=== PATIENT | male | born 1945 | race Caucasian/White ===

== ENCOUNTER 2016-08-19 15:15 | Emergency (ER) | payer MEDICARE, MEDICAID ==
[2016-08-19] MEDS ORDERED: BENZONATATE 100 MG CAPSULE PO STA (16:25)
[2016-08-19] MEDS ORDERED: BENZONATATE 100 MG CAPSULE PO ONE (16:29)
== END 2016-08-19 17:05 | disposition home or self-care (01) ==
DX: J40 Bronchitis, not specified as acute or chronic (principal); R03.0 Elevated blood-pressure reading, without diagnosis of hypertension
CPT/HCPCS: 71020; 87275; 87276; 99283; 99284; A9270

== ENCOUNTER 2016-09-16 | Outpatient (CLI) | payer MEDICARE, MEDICAID | END 2016-09-16 00:01 | disposition home or self-care (01) | DX: R19.7 Diarrhea, unspecified (principal) ==

== ENCOUNTER 2017-02-26 12:53 | Outpatient (CLI) | payer MEDICARE, MEDICAID | END 2017-02-26 12:54 | disposition critical access hospital (66) | LOC: EMS 12:53 | PROVIDERS: ATTEND Surgery | DX: M54.2 Cervicalgia (principal); S60.511A Abrasion of right hand, initial encounter; W01.0XXA Fall on same level from slipping, tripping and stumbling without subsequent striking against object, initial encounter | CPT/HCPCS: A0425; A0429 ==

== ENCOUNTER 2017-02-26 13:13 | Emergency (ER) | payer MEDICARE, MEDICAID ==
[2017-02-26] MEDS ORDERED: HYDROmorphone 1 MG/ML SYRINGE IM STA (13:23)
--- NOTE | 2017-02-26 13:26 | ED Physician Documentation ---
PD HPI MAJOR TRAUMA - Stated complaint Stated Complaint: GLF - Chief complaint Chief Complaint: Trauma Hd/Nk - History obtained from History obtained from: Patient, Family, EMS - History of Present Illness Mechanism of injury: Fell (He was racing his 4-year-old grandson, took a trip and fell forward and had brief loss of consciousness he said, he did hit his forehead and both hands and complains of upper neck pain. He is brought in by ambulance with full C-spine precautions. Tetanus is up-to-date. He is not anticoagulated. He does have a history of prostate cancer which he says is not metastatic.) Review of Systems Ears: denies: Loss of hearing, Ear pain Nose: denies: Rhinorrhea / runny nose, Congestion, Epistaxis Cardiac: denies: Chest pain / pressure, Palpitations Respiratory: denies: Dyspnea, Cough GI: denies: Abdominal Pain PD PAST MEDICAL HISTORY - Past Surgical History Past Surgical History: No - Present Medications Home Medications: Ambulatory Orders Medication Instructions Recorded Confirmed Albuterol Sulfate [Proventil Hfa 1 - 2 puffs IH Q4H PRN #1 08/19/16 Inhaler] hfa.aer.ad Benzonatate [Tessalon] 200 mg PO TID PRN #20 capsule 08/19/16 predniSONE [Deltasone] 60 mg PO DAILY 5 Days 08/19/16 HYDROcod/ACETAM 5/325 [Forest 5/325] 1 - 2 ea PO Q6H PRN #15 tablet 02/26/17 - Allergies Allergies/Adverse Reactions: Allergies Allergy/AdvReac Type Severity Reaction Status Date / Time codeine Allergy Rash Verified 08/19/16 15:26 - Social History Does the pt smoke?: No Smoking Status: Never smoker PD ED PE NORMAL - Vitals Vital signs reviewed: Yes - General General: Alert and oriented X 3, No acute distress, Other (He is in a c-collar and on a backboard. He is rolled off the backboard using logroll precautions during examination, but the c-collar is maintained pending imaging.) - HEENT HEENT: PERRL, EOMI, Other (He has a deep abrasion on the left side of the forehead just above the eyebrow without underlying bony tenderness, nothing that needs stitching. He has no facial bony tenderness. 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, No motor deficit, No sensory deficit, Normal speech - Psych Psych: Normal mood, Normal affect Results - Vitals Vitals: Vital Signs - 24 hr 02/26/17 02/26/17 13:14 14:51 Temperature 36.6 C Heart Rate 104 H 91 Respiratory 20 18 Rate Blood Pressure 154/92 H 113/58 L O2 Saturation 95 99 Oxygen O2 Source Room air - Rads (name of study) Ct Head an cspine Radiology: EMP read contemporaneously (NAD, DJD,DDD) B hands Radiology: EMP read contemporaneously (no frx, DJD) Procedures - Laceration (location) L forehead Length in cm: 3 Wound type: Superficial (more deep abrasion than lac, but persistent bleeding required closure.) Wound Preparation: Irrigated copiously NS Skin layer closure: Dermabond Other: Patient tolerated well, Tetanus UTD Complexity: Simple PD MEDICAL DECISION MAKING - ED course ED course: The patient and family were counseled as to the diagnosis and need for follow- up. I counseled the patient with regard to signs and symptoms that would necessitate an urgent reevaluation in the emergency department. They understand they are welcome to return at any time if worse or if not improving as expected. This document was made in part using voice recognition software. While efforts are made to proofread this documents, sound alike and grammatical errors may occur. Departure - Departure Disposition: 01 Home, Self Care Clinical Impression: Concussion Qualifiers: Encounter type: initial encounter Loss of consciousness presence/duration: with LOC of 30 min or less Qualified Code(s): S06.0X1A - Concussion with loss of consciousness of 30 minutes or less, initial encounter Facial laceration Qualifiers: Encounter type: initial encounter Qualified Code(s): S01.81XA - Laceration without foreign body of other part of head, initial encounter Neck strain Qualifiers: Encounter type: initial encounter Qualified Code(s): S16.1XXA - Strain of muscle, fascia and tendon at neck level, initial encounter Contusion of right hand Qualifiers: Encounter type: initial encounter Qualified Code(s): S60.221A - Contusion of right hand, initial encounter Contusion of left hand Qualifiers: Encounter type: initial encounter Qualified Code(s): S60.222A - Contusion of left hand, initial encounter Condition: Good Record reviewed to determine appropriate education?: Yes Instructions: ED Head Injury Closed, ED Laceration Facial Skin Glue Prescriptions: HYDROcod/ACETAM 5/325 [Forest 5/325] 1 - 2 ea PO Q6H PRN #15 tablet PRN Reason: Pain Comments: Call your doctor to arrange a follow-up appointment, make the next available appointment. In the interim, return anytime if worse or if new symptoms develop. Do not drink or drive while taking narcotic pain medication. Note that many narcotic pain relievers also contain Tylenol/acetaminophen. Please ensure that your total dose of acetaminophen from all sources does not exceed 3 g (3000 mg) per day. You may get constipated while on this medication. Take a stool softener such as Colace twice a day while you are on it. Also add an [id number] laxative such as senna or MiraLAX on any day that you do not have a bowel movement. If you received a narcotic pain medication or sedative while in the emergency department, do not drive for the next 24 hours.
[2017-02-26] MEDS ORDERED: HYDROmorphone 1 MG/ML SYRINGE ONE (13:33)
[2017-02-26] MEDS ORDERED: ONDANSETRON ODT 4 MG TABLET TL STA (13:39)
--- NOTE | 2017-02-26 14:27 | XRAY Preliminary Report ---
Exam: XR Hand 3 View BILAT IMPRESSION: 1. 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 No acute fracture or dislocation . [facility] SITE ID: [id number]
--- NOTE | 2017-02-26 14:30 | XRAY Report ---
EXAMS: 1. Right Hand Radiography 2. Left Hand Radiography EXAM DATE: 02/26/2017 02:14 PM. CLINICAL HISTORY: Fall with bilateral hand injury. COMPARISON: None. TECHNIQUE: 3 views each hand. FINDINGS: Right: Bones: There is moderate osteoarthritis of the right hand. There are small marginal cysts at the seco nd through fourth distal interphalangeal joints. There is moderate spurring of the first interphalang eal joint and fifth PIP joint. No acute fracture. Joints: No dislocation. Soft Tissues: Normal. No soft tissue swelling. Left: Bones: There is moderate osteoarthritis of the left hand. There is spurring which involves the left s econd and fifth distal interphalangeal joints greatest. No acute fracture. Joints: Normal. No subluxations. Soft Tissues: Normal. No soft tissue swelling. IMPRESSION: 1. 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 No acute fracture or dislocation . [facility] Referring Provider Line: [phone] SITE ID: [id number]
--- NOTE | 2017-02-26 14:45 | CT Preliminary Report ---
Exam: CT Head W/O IMPRESSION: Generalized age-related changes without evidence of acute intracranial abnormality when compared to the brain MRI of 12/29/2015. [facility] SITE ID: [id number]
--- NOTE | 2017-02-26 14:48 | CT Report ---
EXAM: CT HEAD EXAM DATE: 02/26/2017 02:31 PM. CLINICAL HISTORY: Fall, head and neck pain. COMPARISON: 12/29/2015 MRI brain TECHNIQUE: Multiaxial CT images were obtained from the foramen magnum to the vertex. IV contrast: Non e. Reformats: Coronal. In accordance with CT protocol optimization, one or more of the following dose reduction techniques w ere utilized for this exam: automated exposure control, adjustment of mA and/or KV based on patient s ize, or use of iterative reconstructive technique. FINDINGS: Parenchyma: No intraparenchymal hemorrhage. No evidence of mass, midline shift, or CT findings of acu te infarction. Mcnulty-white differentiation is distinct. Extraaxial Spaces: Normal for age. No subdural or epidural collections identified. Ventricles: The ventricles and cortical sulci are enlarged, consistent with age-related tissue loss. Sinuses: Imaged paranasal sinuses, orbits, and mastoids show no significant abnormality. Bones: No evidence of fracture or calvarial defect. Other: Diffuse chronic microangiopathic white matter changes are evident. IMPRESSION: Generalized age-related changes without evidence of acute intracranial abnormality when compared to the brain MRI of 12/29/2015. [facility] Referring Provider Line: [phone] SITE ID: [id number]
--- NOTE | 2017-02-26 14:50 | CT Preliminary Report ---
Exam: CT Cervical Spine W/O IMPRESSION: Degenerative changes. No acute disease. [facility] SITE ID: [id number]
[2017-02-26 14:52] VITALS: BP 113/58
--- NOTE | 2017-02-26 14:53 | CT Report ---
EXAM: CT CERVICAL SPINE WITHOUT CONTRAST DATE: 02/26/2017 02:30 PM HISTORY: Fall, head and neck pain. COMPARISONS: 01/10/2016. TECHNIQUE: Thin-section axial images were acquired of the cervical spine without contrast. Post-proce ssing: Coronal and sagittal reformats. Other: None. In accordance with CT protocol optimization, one or more of the following dose reduction techniques w ere utilized for this exam: automated exposure control, adjustment of mA and/or KV based on patient s ize, or use of iterative reconstructive technique. FINDINGS: Alignment: Normal. No scoliosis or spondylolisthesis. Bones: No fracture or bone lesion. Interspace Levels/Facets: C1-C2: Marked degenerative changes including fragmentation of the odontoid tip, present on previous s tudy as well. C2-C3: Moderate disk space narrowing with marginal lipping. C3-C4: Moderate disk space narrowing. Mild degenerative facet disease. C4-C5: Marked disk space narrowing with marginal lipping. Mild degenerative facet disease. C5-C6: Marked disk space narrowing. Moderate degenerative facet disease. C6-C7: Marked disk space narrowing with marginal lipping. C7-T1: Moderate disk space narrowing. Musculature: Grossly unremarkable. Other: The paravertebral and prevertebral soft tissues are normal. The lung apices are clear. IMPRESSION: Degenerative changes. No acute disease. [facility] Referring Provider Line: [phone] SITE ID: [id number]
== END 2017-02-26 15:23 | disposition home or self-care (01) ==
LOC: EDUNIT# → ED 13:13
DX: S06.0X1A Concussion with loss of consciousness of 30 minutes or less, initial encounter (principal); S01.81XA Laceration without foreign body of other part of head, initial encounter; S16.1XXA Strain of muscle, fascia and tendon at neck level, initial encounter; S60.222A Contusion of left hand, initial encounter; S60.221A Contusion of right hand, initial encounter; W01.0XXA Fall on same level from slipping, tripping and stumbling without subsequent striking against object, initial encounter; Y93.02 Activity, running; Y92.019 Unspecified place in single-family (private) house as the place of occurrence of the external cause; M19.042 Primary osteoarthritis, left hand; M19.041 Primary osteoarthritis, right hand; Z85.46 Personal history of malignant neoplasm of prostate
CPT/HCPCS: 12013; 70450; 72125; 73130; 96372; 99284; J1170

== ENCOUNTER 2017-08-11 10:15 | Outpatient (CLI) | payer MEDICARE, MEDICAID ==
[2017-08-11 12:38] LABS: BASOPHILS # (AUTO) 0.1 10^3/uL (0.0-0.1); EOSINOPHILS # (AUTO) 0.3 10^3/uL (0.0-0.7); EOSINOPHILS % (AUTO) 2.6 %; HGB - HEMOGLOBIN 13.7 g/dL (14.0-18.0); LYMPHOCYTES # (AUTO) 2.7 10^3/uL (1.5-3.5); LYMPHOCYTES % (AUTO) 27.5 %; MEAN CORPUSCULAR HEMOGLOBIN 29.3 pg (27.0-31.0); MEAN CORPUSCULAR HGB CONC 35.6 g/dL (32.0-36.0); MEAN CORPUSCULAR VOLUME 82.2 fL (80.0-94.0); MEAN PLATELET VOLUME 7.5 fL (7.4-11.4); MONOCYTES # (AUTO) 0.6 10^3/uL (0.0-1.0); MONOCYTES % (AUTO) 6.1 %; NEUTROPHILS # (AUTO) 6.3 10^3/uL (1.5-6.6); NEUTROPHILS % (AUTO) 62.8 %; PLT - PLATELET COUNT 303 10^3/uL (130-450); RED BLOOD COUNT 4.69 10^6/uL (4.70-6.10); RED CELL DISTRIBUTION WIDTH 14.8 % (12.0-15.0)
[2017-08-11 13:00] LABS: ALBUMIN 4.4 g/dL (3.2-5.5); ALBUMIN/GLOBULIN RATIO 1.2 (1.0-2.2); ALKALINE PHOSPHATASE 54 IU/L (42-121); ALT ALANINE AMINOTRANSFERASE 19 IU/L (10-60); AST ASPARTATE AMINOTRANSFERASE 24 IU/L (10-42); BILIRUBIN,TOTAL 0.4 mg/dL (0.2-1.0); BUN - BLOOD UREA NITROGEN 12 mg/dL (6-20); CALCIUM 8.9 mg/dL (8.5-10.3); CARBON DIOXIDE - CO2 25 mmol/L (21-32); CHLORIDE 105 mmol/L (101-111); CHOL/HDL RATIO 7.4 (<5.0); CHOLESTEROL 156 mg/dL; GFR - MDRD 74 (>89); GLUCOSE 107 mg/dL (70-100); HDL CHOLESTEROL 21 mg/dL; LDL CHOLESTEROL,CALCULATED 103 mg/dL; LDL/HDL RATIO 4.9 (<3.6); SODIUM 138 mmol/L (135-145); VLDL CHOLESTEROL 32 mg/dL
== END 2017-08-11 10:16 | disposition home or self-care (01) ==
LOC: LAB.WCP 10:15
PROVIDERS: ATTEND Family Medicine
DX: Z00.00 Encounter for general adult medical examination without abnormal findings (principal); R51 Headache; F32.9 Major depressive disorder, single episode, unspecified; F41.8 Other specified anxiety disorders
CPT/HCPCS: 36415; 80053; 80061; 83721; 85025

== ENCOUNTER 2019-03-04 08:00 | Outpatient (CLI) | payer MEDICARE, MEDICAID | END 2019-03-04 23:59 | disposition home or self-care (01) | LOC: LAB.WCP 08:00 | PROVIDERS: ATTEND Urology | DX: Z53.9 Procedure and treatment not carried out, unspecified reason (principal) | CPT/HCPCS: 36415; 84153 ==

== ENCOUNTER 2019-03-05 09:15 | Outpatient (CLI) | payer MEDICARE, MEDICAID | END 2019-03-05 23:59 | disposition home or self-care (01) | LOC: LAB.WCP 09:15 | PROVIDERS: ATTEND Urology | DX: C61 Malignant neoplasm of prostate (principal) | CPT/HCPCS: 36415; 84153 ==

== ENCOUNTER 2019-04-08 08:00 | Outpatient (CLI) | payer MEDICARE, MEDICAID | END 2019-04-08 23:59 | disposition home or self-care (01) | LOC: LAB.WCP 08:00 | PROVIDERS: ATTEND Urology | DX: C61 Malignant neoplasm of prostate (principal) | CPT/HCPCS: 36415; 84153 ==

== ENCOUNTER 2019-04-13 10:30 | Outpatient (CLI) | payer MEDICARE, MEDICAID ==
--- NOTE | 2019-04-13 21:16 | CONSULTATION NOTE ---
Palliative Care Consultation - Referral Referring Provider: Dr. Sidney Correa Time of Visit: [id number] Referral setting: Home Referral Reason: Metastatic Prostate Cancer/Goals of Care - Information Sources Records reviewed: Previous records reviewed History/Review of Systems obtained from: Patient, Family (daughter Radha present; Marie Green) Exam limitations: No limitations - History of Present Illness Brief History of Present Illness: This is a 73-year-old gentleman who was referred in follow-up regarding his metastatic prostate cancer. He was originally diagnosed with a [id number] (Stage IVB) [place] 9 prostate cancer, at age 69 related to a baseline screening PSA of 269. Biopsies confirmed his [place] 9 prostate adenocarcinoma, and showed local prostatic extension, retroperitoneal lymphadenopathy, and right pelvic osteo metastasis. He was treated with Lupron and Casodex, but now has had a nuclear bone scan on 03/02/2009 that showed increased uptake in his right iliac bone compared to 09/02/2018, though does not have localized pain in this area. He was originally seen by Dr. Benoit, and most recently seen by Dr. Jennings urologist, and followed by Dr. Sidney Correa in oncology. Patient's most recent PSA 02/2019 was 21.98; with his follow-up 04/08/2000 1920.128. He was changed to Xtandi, and has been taking for a few weeks, is continuing on Lupron. In review other medications, he has been taking them 4 times a day, instructed can take all 4 tabs =120 mg; in am. This will help with compliance as well. Patient has at baseline back pain, with herniated discs, arthritis of his cervical spine, and has long turn been on hydrocodoneacetaminophen 5/325 mg in the a.m., and in the p.m. as needed. He has a pain contract with Dr. Riley, will leave in place for now, as he is not experiencing any increase in his pain related to his cancer. He has recently had his sertraline increased to 100 mg for persistent depression, and has underlying anxiety disorder. He lives with his of 28 years Marie, daughter Radha has been helping oversee their care, she lives in [place]. She is getting ready to move to [place], and is hoping to connect patient with palliative care for further support and oversight in his oncology diagnosis and care. Medical/Surgical History - Past Medical History Respiratory: reports: Asthma Neuro: Headaches GI: reports: Hiatal hernia, Chronic constipation : reports: Benign prostate hypertrophy, Other (Prostate Cancer) HEENT: reports: Chronic vision loss Psych: reports: Depression, Anxiety Musculoskeletal: reports: Osteoarthritis, Fatigue, Chronic back pain MRSA Hx?: No - Substance History Use: Uses substance without health or social issues: Other (history of meth use; tobacco; now vaps/smokes marijuana for sleep/anxiety at night) Social History - Living Situation Living arrangement: At home Living Situation: With spouse/s.o. Support System: Patient lives with his Anuj Green, they have been 28-1/2 years. He came up from [place] in 2014, to be with his daughter. Reports he lived off the grid for several years, and had not received any healthcare until Radha his daughter got him signed up. He is very much enjoyed being involved in their family, will be difficult for them as she moves back to [place]. He does have 8 children total, Radha, 4 in [place], went [place], one in [place], and one . They live in the subsidized apartments in [place], they do not drive, but can walk to most appointments/stores and have paratransit set up. Family History - Family History Family History: Mother: Alive and Well (age 92), Father: (two brothers of liver cancer 67 & 53), Cancer ( of brain cancer at 38), Brother: , Cancer Medications/Allergies - Medications Home Medications: Ambulatory Orders Medication Instructions Recorded Confirmed Albuterol Sulfate [Proventil Hfa 1 - 2 puffs IH Q4H PRN #1 08/19/16 Inhaler] hfa.aer.ad Alprazolam [Xanax] 0.5 mg PO ACHS PRN 04/15/19 04/15/19 Cholecalciferol (Vitamin D3) 2,000 unit PO DAILY 04/15/19 04/15/19 [Vitamin D3] Enzalutamide [Xtandi] 160 mg PO DAILY 04/15/19 04/15/19 HYDROcod/ACETAM 5/325 [[place] 5/325] 1 ea PO BID 04/15/19 04/15/19 Pramipexole Di-HCl [Mirapex] 0.125 mg PO ACHS 04/15/19 04/15/19 Senna [Senokot] 8.6 mg PO BID PRN 04/15/19 04/15/19 Sertraline HCl 100 mg PO DAILY 04/15/19 04/15/19 - Allergies Allergies/Adverse Reactions: Allergies Allergy/AdvReac Type Severity Reaction Status Date / Time codeine Allergy Rash Verified 08/19/16 15:26 Review of Systems - Constitutional Constitutional: reports: Fatigue, Weight stable (212). denies: Fever, Chills - Eyes Eyes: reports: Vision loss, Corrective lenses - Ears, Nose & Throat Ears, Nose & Throat: reports: Hearing loss (mild; complain of a ongoing noise in ears "release of air" not ringing or tinnitus), Other (dental implants) - Cardiovascular Cardiovascular: reports: Lightheadedness, Exertional dyspnea, Decr. exercise tolerance. denies: Chest pain - Respiratory Respiratory: reports: Cough (occ), Wheezing (intermittently), Snoring, SOB with exertion, Other (snoring;). denies: SOB at rest - Gastrointestinal Gastrointestinal: reports: Constipation, Good appetite. denies: Nausea - Genitourinary Genitourinary: denies: Incontinence - Musculoskeletal Musculoskeletal: reports: Back pain (group home chronic; has opioid contract with Dr. Riley), Muscle aches, Stiffness, Muscle weakness, Assistive devices (has walker for longer distances) - Integumentary Integumentary: reports: Dryness, Hair changes (lost body hair) - Neurological Neurological: reports: General weakness, Dizziness, Memory problems (mild), Abnormal gait, Other (reports RLS at night) - Psychiatric Psychiatric: reports: Depression (recent increase of Sertraline), Anxiety - Endocrine Endocrine: reports: Intolerance to cold - Hematologic/Lymphatic Hematologic/Lymphatic: denies: Recurrent infections - All Other Systems All Other Systems: reports: Reviewed and negative Physical Exam - Vital Signs Temperature: 97.1 C Pulse Rate: 53 Respiratory Rate: 18 O2 Saturation: 96 (ra @ rest) Blood Pressure: 128/72 (sitting; 118/72 standing) - Physical Exam General Appearance: positive: No acute distress, Alert Eyes Bilateral: positive: Normal inspection ENT: positive: No signs of dehydration Neck: positive: No JVD, Trachea midline Cardiovascular: positive: Regular rate & rhythm Respiratory: positive: No respiratory distress, Breath sounds nml Abdomen: positive: Non-tender, Soft, Nml bowel sounds, Obese. negative: Hepatomegaly, Mass Skin: positive: Pallor, Dryness Extremities: positive: No pedal edema Neurologic/Psychiatric: positive: Oriented x3, Mood/affect nml, Weakness, Other (balance poor) Palliative Care - POLST Patient has POLST: No Pain: Pain unchanged, Location Tiredness/Fatigue: Moderate (4-6) Drowsiness/Sedation: Mild (1-3) Nausea: None Depression: Moderate (4-6) Anxiety: Moderate (4-6) Dyspnea: Mild (1-3) Anorexia: None Sleep: Sleeps poorly (restless leg syndrome), Variable sleep pattern Constipation: Yes, Opoid induced, Unmanaged Feelings of wellbeing/Perceived Quality of Life: Good, Acceptable, No change Performance Status: Patient becomes quite fatigued with prolonged ambulation, this is both related to his generalized lower extremity weakness, and increasing lightheadedness. He is able to manage his own ADLs, he is quite sedentary. Does have trouble getting from sitting to standing, he is in a very low chair and couch. Reports slow functional decline. - Palliative Care Discussion: Patient's current understanding is he does have prostate cancer, and is getting active treatment. Does understand it spread to his bones, does not have a sense of what his prognosis is. He does perceive his quality of life is acceptable, he does not have any advanced care planning documents. We did discuss in the context of this, the most important is his D POA for healthcare. It does go to [facility] as they are , but would recommend a second person, he has identified Radha Doherty. They do acknowledge she is help them navigate most of their appointments and his healthcare issues, are somewhat anxious with her pending move to [place]. Radha is hoping palliative care can help with coordination and support and monitor for any decline and assist with understanding. Results - Lab Results Lab results reviewed: Yes Lab and Imaging Results: PSAs 02/2019 21.982/2018 7. 3. 2.7 most recent 04/08/2000 1920.128. Patient's BUN is 12.9 sodium 139 potassium 3.9 Impression and Recommendations - Palliative Care Impression: This is a 73-year-old gentleman with recent progression of his metastatic prostate cancer, known mets to his right pelvic bone, and retroadenopathy. His original presentation was 5 years ago. He is continue to get his Lupron shots, and recently was changed from Casodex to Xtandi. He has had mostly as far as symptoms, fatigue, and intermittent dizziness. He has lost body hair, and some muscle mass. Palliative care to provide support for coordination of care and symptom management. Recommendations/Counseling Done: 1. Medication adherence. Patient receiving Xtandi from specialty pharmacy, is somewhat overwhelmed. Had been taking the capsules 1 4 times a day, all 4 capsules can be taken at the same time in the morning and this will simplify the medication regimen. Did assist and review feeling of Mediset's as well as storage has not needs to be in a cool place. They have completed about 2 weeks, demonstrated and provided assistance for reordering medications from pharmacy. 2. Metastatic prostate cancer. Patient does have some fatigue, does present with some dizziness most likely is a side effect of his new medication. He has had a decline in his muscle mass, most likely related to his androgen blockade. Encouraged to continue with progressive walking, activity, also recommended a chair lift, so he is not putting so much pressure on his back and may help with the dizziness from sitting to standing. 3. Restless leg syndrome. Patient has never had a sleep study, reports he has severe restless legs at night, often kicking his partner. He does report he does snore quite loudly. He does have trouble with sleep, he also has nocturia and difficulty going back to sleep. Patient would like to try some Mirapex 0.125 mg at bedtime to see if this impacts it at all. Will follow up with PCP if patient a candidate for referral for sleep study. May help him overall as far as his fatigue level. 4. Constipation. Patient experiencing increased constipation with new medication. Instructed to obtain senna 8.6 mg, take 1-2 daily. Discouraged use of intermittent Ex-Lax. 5. Advanced care planning. Patient with minimal social support here in [place], daughter is getting ready to move. She is concerned that his gets easily overwhelmed as far as tracking medications and managing medical appointments and information. Patient does have high anxiety, patient would benefit from ongoing support from palliative care team. Provided documentation for D POA, and instructions for completion. Will introduce further advanced care planning documents as report is built. Time Spent: 75 minutes with greater than 50% of this done in counseling regarding new medication Xtandi, coordination of care with specialty pharmacy, review of disease understanding, and reduction of advanced care planning, and anticipatory guidance.
== END 2019-04-13 10:31 | disposition home or self-care (01) ==
LOC: PC 10:30
PROVIDERS: ATTEND Nurse Practitioner Adult Health
DX: Z51.5 Encounter for palliative care (principal); C61 Malignant neoplasm of prostate; C79.51 Secondary malignant neoplasm of bone; G25.81 Restless legs syndrome; R53.83 Other fatigue; K59.09 Other constipation; R42 Dizziness and giddiness; Z79.899 Other long term (current) drug therapy; Z79.891 Long term (current) use of opiate analgesic
CPT/HCPCS: 99345

== ENCOUNTER 2019-06-18 17:38 | Outpatient (CLI) | payer MEDICARE, MEDICAID ==
--- NOTE | 2019-06-18 17:46 | CONSULTATION NOTE ---
Palliative Care Follow Up - Referral Referring Provider: Dr. Ish Riley Time of Visit: [id number] Referral setting: Home Referral Reason: Met Prostate CA / anxiety/ goals of care - Information Sources Records reviewed: Previous records reviewed History/Review of Systems obtained from: Patient, Family ( Anuj present) Exam limitations: Clinical condition (patient with some STM issues;) - History of Present Illness Update Brief HPI Update: This is a 73-year-old gentleman with metastatic prostate cancer with lymphadenopathy and bone mets. He was originally diagnosed with a [id number] stage IVb, [place] 9, at age 69 discovered with baseline screening of a PSA of 269. He was originally treated with Lupron and Casodex, had a bone scan 03/02/2019 that showed increased uptake in his right iliac bone though he does not present with localized pain in this area. He is currently seeing Dr. Santos in [place] , with his most recent PSA 04/08/2019 20.1. He is currently on Xtandi, he has not had any intolerable side effects, he does present with fatigue, arthralgias, dizziness, and progressive muscular weakness. Palliative care is currently seeing patient in the context of his serious illness, to assist patient and navigating their journey, and psychosocial support. Referral was initiated by their daughter, who is currently moving to [place] and feels they would benefit from ongoing contact with palliative care. 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 and p.m. as needed. He has a pain contract with Dr. Riley, and less patient presents with escalating pain we will leave this in place for now. He also has persistent depression and anxiety, feels this is currently managed with his current regimen of sertraline and alprazolam at night. He does have restless leg syndrome, though did not tolerate the Mirapex, and his other persistent side effect has been fatigue and generalized muscle weakness. Patient's other past medical history includes asthma, headaches, hiatal hernia, BPH, osteoarthritis, and history of meth use and tobacco. Patient is continuing to use marijuana for sleep and anxiety at night. Social History - Living Situation Living arrangement: At home Living Situation: With spouse/s.o. Support System: Patient lives with his Anuj, they have been almost 29 years, he came up from [place] in 2015 to be with his daughter. Up to this point he had lived "off the grid" for several years, had not received any healthcare up to this point. He is very much enjoyed be involved with her family, and finds it difficult that she is moving back to [place]. This is where he is originally from as well. He does have 8 children total. They live in subsidized apartments in [place], they do not drive, have been able to walk to most appointments in stores and have paratransit in place Medications/Allergies - Medications Home Medications: Ambulatory Orders Medication Instructions Recorded Confirmed Albuterol Sulfate [Proventil Hfa 1 - 2 puffs IH Q4H PRN #1 08/19/16 06/19/19 Inhaler] hfa.aer.ad Alprazolam [Xanax] 0.5 mg PO QPM PRN 04/15/19 06/19/19 Cholecalciferol (Vitamin D3) 2,000 unit PO DAILY 04/15/19 06/19/19 [Vitamin D3] Enzalutamide [Xtandi] 160 mg PO DAILY 04/15/19 06/19/19 HYDROcod/ACETAM 5/325 [[place] 5/325] 1 ea PO BID 04/15/19 06/19/19 Senna [Senokot] 8.6 mg PO BID PRN 04/15/19 06/19/19 Sertraline HCl 100 mg PO DAILY 04/15/19 06/19/19 - Allergies Allergies/Adverse Reactions: Allergies Allergy/AdvReac Type Severity Reaction Status Date / Time codeine Allergy Rash Verified 08/19/16 15:26 Review of Systems - Constitutional Constitutional: reports: Fatigue, Weight stable. denies: Fever, Chills - Eyes Eyes: reports: Vision loss - Ears, Nose & Throat Ears, Nose & Throat: reports: Hearing loss - Cardiovascular Cardiovascular: reports: Edema (ankles), Lightheadedness, Exertional dyspnea, Decr. exercise tolerance - Respiratory Respiratory: reports: SOB with exertion. denies: Cough, SOB at rest - Gastrointestinal Gastrointestinal: reports: Good appetite (eating less in portions; eats alot of processed foods/sugar drinks). denies: Constipation, Diarrhea, Nausea, Reflux/heartburn - Genitourinary Genitourinary: reports: Frequency, Urgency - Musculoskeletal Musculoskeletal: reports: Back pain (longstanding), Stiffness, Muscle weakness - Integumentary Integumentary: reports: Dryness - Neurological Neurological: reports: General weakness, Memory problems (mild), Abnormal gait (somewhat ataxic) - Psychiatric Psychiatric: reports: Anxiety. denies: Depression - Endocrine Endocrine: reports: Intolerance to cold - Hematologic/Lymphatic Hematologic/Lymphatic: denies: Recurrent infections - All Other Systems All Other Systems: reports: Reviewed and negative Physical Exam - Vital Signs Temperature: 96.9 C Pulse Rate: 66 Respiratory Rate: 18 O2 Saturation: 97 (ra @ rest) Blood Pressure: 112/72 - Physical Exam General Appearance: positive: No acute distress, Alert Eyes Bilateral: positive: Normal inspection ENT: positive: No signs of dehydration, Other (dentures) Neck: positive: No JVD, Trachea midline Cardiovascular: positive: Regular rate & rhythm Respiratory: positive: No respiratory distress, Breath sounds nml, Diminished in bases Abdomen: positive: Non-tender, Soft, Nml bowel sounds, Distended Skin: positive: Pallor, Dryness Extremities: positive: Pedal edema (trace in ankles), Other (gait shuffled; some difficulty with balance; dizzyness with sit to stand; no further falls) Neurologic/Psychiatric: positive: Oriented x3, Mood/affect nml, Weakness, Flat affect Palliative Care - POLST Patient has POLST: No Pain: Pain unchanged, Location (chronic neck and back pain; mod in severity;) Tiredness/Fatigue: Severe (7-10) (is able to walk short distances to store on "good days") Drowsiness/Sedation: Mild (1-3) Nausea: None Anorexia: None Dyspnea: Mild (1-3) Depression: Mild (1-3) Anxiety: Moderate (4-6) (reports life long, but exacerbated when relocated to [facility], does not feel worsened with diagnosis;) Feelings of wellbeing/Perceived Quality of Life: Good, Acceptable, No change Sleep: Variable sleep pattern Constipation: Yes, Opoid induced, Managed (doing better with intermittent dosing of Senna) Performance Status: Patient does become pretty fatigued, does have some activity intolerance particularly with prolonged ambulation. This is related to generalized lower extremity weakness, and increasing lightheadedness particular from sitting to standing. He is able to manage his own ADLs, he is quite sedentary, and has noted slow functional decline. - Palliative Care Discussion: Patient does understand he has serious illness, and active treatment with his prostate cancer is palliative and not curative. He does perceive his current quality of life is acceptable, and is worried about losing his social support of his daughter. They have not completed the DPOAE, we reviewed this document again, and filled it out as far as we could, they do have friends that can witness it. We did discuss in the context of his metastatic cancer, he does have most likely years versus weeks to months. He was quite relieved with this, this is documented in Dr. Lopez note of would expect 2 years or more. They do not tend to ask many questions, and admit to feeling overwhelmed and some difficulty with health literacy. He does have 2 brothers though who of cancer, so is quite pragmatic in understanding the uncertainty, his mother though is 92, and still living. We did discuss in the context of his goals of care, he would not want any heroic measures, or to be on any "machines". At end-of-life, Anuj is very committed to wanting to be the one who cares for him. He had a recent experiences last year with his ex-, who his daughter Radha took care of at home with hospice, and this is what they would want for him. Impression and Recommendations - Palliative Care Impression: This is a 73-year-old gentleman with recent progression in his metastatic prostate cancer, with known mets to his right pelvic bone and lymphadenopathy. His original presentation was 5 years ago, hitting he will continue to get his Lupron shots and is currently on Xtandi. He will be changing to local oncology, secondary transportation issues. He does have fairly low symptom burden, side effects of mostly been fatigue. He has had some loss of muscle mass, and has been quite sedentary. Palliative care to provide support for symptom management and coordination of care. Recommendations/Counseling Done: 1. Medication adherence. Patient is taking Xtandi from the specialty pharmacy, Anuj has been able to negotiate this and they are taking the medications from the [facility]. She does feel more confident in managing his medications. 2. Constipation. Patient has had some side effects of constipation both from his opioids as well as his new medication. He is using the senna 1-2 tabs as needed with good results. 3. Metastatic prostate cancer. Patient has fatigue, dizziness, and decline in muscle mass most likely related to his androgen blockade. He will be transitioning to [place] resources related to paratransit restrictions. He has met and will be followed by Dr. HON Herbert, urologist and Dr. MARIA ELENA LAMB for oncology, they are to meet next month. 4. Generalized weakness. Patient does walk short distances, he would benefit from physical therapy. They are open to having a prescription, they do get easily overwhelmed. We will initiate this after their oncology appointment. 5. Advanced care planning. Patient with minimal support here in [place], his daughter moving today to [place]. She is quite concerned about them managing as both get easily overwhelmed, reviewed again documentation for D POA and instructions for completion. Initiated goals of care conversation today, will continue and translate this into a POLST in the future when report is built. 6. Anxiety. Patient reports long-term anxiety, does use marijuana, sertraline and his alprazolam on and feels currently controlled. Introduced other members of the team including medical palliative care social media strategist and slps, client at this point in time. Time Spent: 60 minutes with greater than 50% of this done in counseling regarding disease, goals of care, management of symptoms, and anticipatory guidance.
== END 2019-06-18 17:39 | disposition home or self-care (01) ==
LOC: PC 17:38
PROVIDERS: ATTEND Nurse Practitioner Adult Health
DX: Z51.5 Encounter for palliative care (principal); C61 Malignant neoplasm of prostate; C79.51 Secondary malignant neoplasm of bone; C77.9 Secondary and unspecified malignant neoplasm of lymph node, unspecified; M50.20 Other cervical disc displacement, unspecified cervical region; M47.812 Spondylosis without myelopathy or radiculopathy, cervical region; Z79.891 Long term (current) use of opiate analgesic; F32.9 Major depressive disorder, single episode, unspecified; F41.9 Anxiety disorder, unspecified; Z79.899 Other long term (current) drug therapy; G25.81 Restless legs syndrome; Z87.891 Personal history of nicotine dependence; G89.29 Other chronic pain; R42 Dizziness and giddiness; Z79.818 Long term (current) use of other agents affecting estrogen receptors and estrogen levels; K59.03 Drug induced constipation; T40.2X5D Adverse effect of other opioids, subsequent encounter
CPT/HCPCS: 99350

== ENCOUNTER 2019-07-28 09:38 | Outpatient (CLI) | payer MEDICARE, MEDICAID ==
--- NOTE | 2019-07-29 08:52 | DEXA Report ---
Reason: OSTEOPOROSIS Procedure Date: 07/28/2019 Accession Number: [id number] / [id number] Procedure: DEX - Dexa Spine and/or Hip CPT Code: Final Report FULL RESULT: EXAM: Dexa Spine and/or Hip DATE: 07/28/2019 10:20 AM CLINICAL HISTORY: OSTEOPOROSIS TECHNIQUE: Dual energy x-ray absorptiometry (DXA) was performed on a [facility] System. Regions measured are the AP Spine, femoral neck, and if needed forearm. COMPARISON: None. In accordance with the International Society for Clinical Densitometry (ISCD) guidelines, data from previous exams may be reanalyzed using current recommendations and techniques. This is done to allow a more accurate basis for comparison with the current study. FINDINGS: The data for the lumbar spine is as follows: BMD (g/cm/cm) T-SCORE Z-SCORE REGION L1 1.168 0.1 -0.1 L2 1.335 0.8 0.6 L3 1.426 1.6 1.4 L4 1.650 3.4 3.3 TOTAL 1.417 1.6 1.5 NOTE: All evaluable vertebrae are used for classification The data for the hip is as follows: BMD (g/cm/cm) T-SCORE Z-SCORE REGION Neck 0.851 -1.7 -0.9 TOTAL 1.012 -0.6 -0.3 NOTE: The femoral neck or total proximal femur, whichever is lowest, is used for classification. IMPRESSION: THE WHO CLASSIFICATION BASED ON THE INTERNATIONAL REFERENCE STANDARD IS OSTEOPENIA. THE FRACTURE RISK IS INCREASED. RECOMMENDATION: Patients with diagnosis of osteoporosis or osteopenia should have regular bone mineral density assessment. For those eligible for Medicare, routine testing is allowed once every 2 years. Testing frequency can be increased for patients who have rapidly progressing disease or for those who are receiving medical therapy to restore bone mass. COMMENT: World Health Organization (WHO) definitions for osteoporosis and osteopenia: NORMAL BMD: T-score at -1.0 or higher, fracture risk is low OSTEOPENIA BMD: T-score between -1.0 and -2.5, fracture risk is increased. OSTEOPOROSIS BMD: T-score at -2.5 or lower, fracture risk is high. National Osteoporosis Foundation recommends: 1. Obtain adequate dietary calcium (at least 1200 mg per day) and vitamin D (400-800 international units per day). 2. Participate, as appropriate, in regular weightbearing and muscle-strengthening exercise. 3. Avoid tobacco use and reduce alcohol and caffeine intake. 4. For more detailed information see the website at www.NOF.org.
== END 2019-07-28 09:39 | disposition home or self-care (01) ==
LOC: DI 09:38
PROVIDERS: ATTEND Internal Medicine Hematology & Oncology
DX: M85.88 Other specified disorders of bone density and structure, other site (principal)
CPT/HCPCS: 77080

== ENCOUNTER 2020-04-12 10:35 | Outpatient (CLI) | payer MEDICARE, MEDICAID ==
--- NOTE | 2020-04-12 14:11 | CONSULTATION NOTE ---
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 He is currently on Xtandi, and continues with side effects of fatigue, arthralgias, intermittent dizziness, and progressive muscular weakness most likely attributed to his Lupron shots. Patient had been trialed on Zometa, reports he had severe nausea vomiting, dizziness, and bone pain and does not want to continue. Patient at baseline has low-grade back pain, herniated disc, and arthritis of the cervical spine, has long-term been on hydrocodone/acetaminophen 5/325 mg at p.m., and in a.m. as needed. Patient also has underlying PTSD and anxiety, reports noting increased forgetfulness, patient confirms, occasional intermittent confusion but easily reoriented. Patient is quite sedentary, spends most the time watching TV and sitting in his recliner, he and his are limited as they have no transportation. Patient has longstanding depression currently on sertraline, restless leg syndrome at night, has trialed Mirapex without effect, insomnia currently using trazodone 100 mg, and generalized anxiety disorder. Patient is quite private, does describe candidiasis in groin and scrotal area today. His other past medical includes asthma, headaches, hiatal hernia, BPH, osteoarthritis, and history of meth/tobacco use. He continues to use marijuana for sleep and anxiety Social History - Living Situation Living arrangement: At home Living Situation: With spouse/s.o. Support System: Patient lives with his Anuj, they have been almost 29 years, he came up from [place] in 2014 to be with his daughter. Unfortunately she is since moved to [place], he still has family in [place], they live in subsidized apartments in [place]. His son in [facility], may supply them a car, still can drive, this would not happen until after the first of the year. They do find is quite limiting as they are dependent on paratransit as well as being able to ambulate to where they need to go. Medications/Allergies - Medications Home Medications: Ambulatory Orders Medication Instructions Recorded Confirmed Albuterol Sulfate [Proventil Hfa 1 - 2 puffs IH Q4H PRN #1 08/19/16 04/12/20 Inhaler] hfa.aer.ad Alprazolam [Xanax] 0.5 mg PO TID PRN 04/15/19 04/12/20 Cholecalciferol (Vitamin D3) 4,000 unit PO DAILY 04/15/19 04/12/20 [Vitamin D3] Enzalutamide [Xtandi] 160 mg PO DAILY 04/15/19 04/12/20 HYDROcod/ACETAM 5/325 [[place] 5/325] 1 ea PO BID 04/15/19 04/12/20 Senna [Senokot] 8.6 mg PO BID PRN 04/15/19 04/12/20 Sertraline HCl 100 mg PO DAILY 04/15/19 04/12/20 Betamethasone Valerate 1 gm TOP BID 07/19/19 04/12/20 Ferrous Gluconate [Iron] 1 tab PO DAILY 04/12/20 04/12/20 Nystatin 1 applic TOP BID PRN 04/12/20 04/12/20 - Allergies Allergies/Adverse Reactions: Allergies Allergy/AdvReac Type Severity Reaction Status Date / Time codeine Allergy Rash Verified 04/05/20 11:01 Review of Systems - Constitutional Constitutional: reports: Fatigue (persistent), Weight stable. denies: Fever, Night sweats - Ears, Nose & Throat Ears, Nose & Throat: reports: Hearing loss (mild), Dentures - Cardiovascular Cardiovascular: reports: Lightheadedness, Exertional dyspnea, Decr. exercise tolerance. denies: Chest pain, Edema - Respiratory Respiratory: reports: SOB with exertion. denies: Cough, SOB at rest - Gastrointestinal Gastrointestinal: reports: Constipation (intermittent), Good appetite. denies: Nausea - Genitourinary Genitourinary: reports: Frequency - Musculoskeletal Musculoskeletal: reports: Back pain, Stiffness, Muscle weakness, Other (neck pain) - Integumentary Integumentary: reports: Rash (described candidiasis will not allow exam), Dryness - Neurological Neurological: reports: Memory problems - Psychiatric Psychiatric: reports: Depression, Anxiety, Aggitation (at times) - Endocrine Endocrine: reports: Intolerance to cold - Hematologic/Lymphatic Hematologic/Lymphatic: reports: Anemia. denies: Recurrent infections - All Other Systems All Other Systems: reports: Reviewed and negative Physical Exam - Vital Signs Temperature: 96.5 C Pulse Rate: 60 Respiratory Rate: 18 O2 Saturation: 95 (ra @ rest) Blood Pressure: 112/64 - Physical Exam General Appearance: positive: Alert, Anxious Eyes Bilateral: positive: Normal inspection ENT: positive: No signs of dehydration Neck: positive: Trachea midline Cardiovascular: positive: Regular rate & rhythm Respiratory: positive: No respiratory distress, Diminished in bases. negative: Wheezes, Rales, Rhonchi Abdomen: positive: Non-tender, Soft, Obese Skin: positive: Pallor, Dryness Extremities: positive: No pedal edema Neurologic/Psychiatric: positive: Oriented x3, Mood/affect nml, Weakness, Flat affect Palliative Care - POLST Patient has POLST: No Pain: Pain unchanged, Location (bilateral neck pain;shoulders uses vicodin at bedtime-occasional in am) Tiredness/Fatigue: Moderate (4-6) Drowsiness/Sedation: Moderate (4-6) (easily falls asleep) Nausea: None Anorexia: None Dyspnea: Moderate (4-6) (with activity) Depression: Moderate (4-6) Anxiety: Severe (7-10) Feelings of wellbeing/Perceived Quality of Life: Good, Acceptable, No change Sleep: Variable sleep pattern (up every 2 hours related to RLS; nocturia; is not stressed regarding this) Constipation: Yes, Managed Performance Status: He is quite sedentary, spends most of the time sitting in the recliner watching TV. He does ambulate back and forth to the bathroom, does assist him with bathing. Patient is able to dress independently. They do walk to the grocery store, though patient does get quite dizzy with prolonged ambulation. He does present with significant deconditioning, and noted muscle wasting, would attribute both to sedentary lifestyle and Lupron. - Palliative Care Discussion: Their main support Radha has moved back to [place], they are here without any community support. There are many complications in the context of financial stressors, they are hoping to have a car. Patient does feel like his depression is exacerbated by his inability to go places, they are looking at getting a car from 1 of their sons in [place]. Patient also admits to little patients with most things, does get quite anxious, easily triggered which makes Anuj anxious. They have not follow through on their D POA, reviewed the form again, will continue to have conversations and develop over time, patient does have as best we know at least prognosis measured in months to years. They are open to ongoing palliative care support, and often need help navigating the system. Their daughter had provided that goal previously. When discussed his depression, he feels that is actually pretty well controlled, feels more it is situational in the context of the current pandemic and feeling stuck. He is a quite a private person, does not like to share much, but did offer up social service assistant if would be of help. Results - Lab Results Lab results reviewed: Yes Impression and Recommendations - Palliative Care Impression: This is a 74-year-old gentleman currently receiving treatment for his metastatic prostate cancer, with known mets to the right pelvic bone and lymphadenopathy. His original presentation was over 5 years ago, he is currently getting Lupron shots and on Xtandi. He has established with local oncology, continues to have fatigue, and chronic health problems. Palliative care to provide support for symptom management and coordination of care. Recommendations/Counseling Done: 1. Muscle wasting. We did discuss patient does need to be more active, declined physical therapy referral. We did discuss how best to integrate physical activity into his daily routine, and encouraged a daily walk around the complex, reports other people are doing this as well. We discussed this would be helpful both for slowing down his muscle mass loss, increasing his strength, and addressing some of his depressive symptoms. Counseling provided for progressive ambulation program. 2. Candidiasis. Patient is quite shy, patient reports uncircumcised and has some difficulty at times, but patient describing groin and scrotal rash red and itchy. We will go ahead and order nystatin powder, instructed to apply twice daily, does appear per patient's description is moist. Will call if does not improve. 3. Depression. Patient currently on sertraline and supplemented for trazodone with sleep. Patient does describe situational stressors, declines further recommendations regarding medications, or social work support. We will continue to monitor. 4. Anxiety. Patient does describe symptoms of PTSD, long-term anxiety, does easily get short and impatient, this makes quite anxious. Patient is quite private, will continue to work on building rapport, have been instructed to reach out if any other concerns or problems. 5. Advanced care planning. Unfortunately patient and with little psychosocial support. Daughter is moved to [place]. Will work on advanced care planning documents paced to their anxiety and understanding. Carlos TOLEDO paperwork today. Provided new form. Time Spent: 55 minutes with greater than 50% of this done in counseling regarding symptom management, understanding of disease, depression and anxiety, and anticipatory guidance.
== END 2020-04-12 10:36 | disposition home or self-care (01) ==
LOC: PC 10:35
PROVIDERS: ATTEND Nurse Practitioner Adult Health
DX: Z51.5 Encounter for palliative care (principal); M62.50 Muscle wasting and atrophy, not elsewhere classified, unspecified site; B37.2 Candidiasis of skin and nail; F32.9 Major depressive disorder, single episode, unspecified; F41.9 Anxiety disorder, unspecified; C61 Malignant neoplasm of prostate; C77.2 Secondary and unspecified malignant neoplasm of intra-abdominal lymph nodes; C79.51 Secondary malignant neoplasm of bone; Z79.899 Other long term (current) drug therapy
CPT/HCPCS: 99349

== ENCOUNTER 2020-06-13 10:58 | Outpatient (CLI) | payer MEDICARE, MEDICAID ==
--- NOTE | 2020-06-13 11:04 | XRAY Report ---
PROCEDURE: Ribs w/PA Chest LT INDICATIONS: UNSPECIFIED FALL TECHNIQUE: 4 views of the left ribs were acquired, along with a single view chest. COMPARISON: Chest radiographs 08/19/2016 FINDINGS: Surgical changes and devices: None. Bones and chest wall: Minimally displaced fractures are seen at the anterior aspect of the left 9th a nd 10th ribs. No suspicious bony lesions. Overlying soft tissues appear unremarkable. Lungs and pleura: No pleural effusions or pneumothorax. Lungs appear clear. Mediastinum: Mediastinal contours appear normal. Heart size is normal. IMPRESSION: Minimally displaced fractures of the left 9th and 10th ribs. No pleural effusion or pneumothorax. Reviewed by: Noé Vicente MD on 06/13/2020 10:03 AM [facility] Approved by: Noé Vicente MD on 06/13/2020 10:03 AM [facility] Station ID: [id number]
== END 2020-06-13 23:59 | disposition home or self-care (01) ==
LOC: DI.N 10:58
PROVIDERS: ATTEND Nurse Practitioner
DX: S22.42XA Multiple fractures of ribs, left side, initial encounter for closed fracture (principal)

== ENCOUNTER 2020-06-27 12:50 | Outpatient (CLI) | payer MEDICARE, MEDICAID ==
--- NOTE | 2020-06-27 16:42 | CONSULTATION NOTE ---
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 He is currently on Xtandi, and continues with fatigue, arthralgias, intermittent dizziness, and progressive muscular weakness most likely attributed to his Lupron shots. Patient did have Zometa, perceives it caused him severe discomfort vomiting. Patient has low grade back pain, herniated disc, and arthritis of cervical spine and has long-term been on his hydrocodone acetaminophen 5/325 mg twice daily. Patient presents with feeling quite overwhelmed by his current diagnosis, it is challenging for both he and his to manage his medical appointments and transportation, they have very little support here since her daughter has moved to [place]. Patient is quite sedentary, and spends most the time is watching TV. He most recently had a fall with left rib fractures, but does feel like he is recovering. Denies any shortness of breath, cough without changes, but is e xperiencing increasing fatigue, as well as persistent depressive and anxiety symptoms. Patient is long-term been on sertraline, we have discussed previously increasing, at this point in time given his persistent feelings of anxiety and depression would like to try titrating up. He has also seen oncology, he has been on oral iron, had run out a few days ago. They are looking at doing iron transfusion. Patient feels very anxious when he needs to come to the clinic, we did discuss though this may help his fatigue, he had equated this with his Zometa infusion explained this would be a different medication, after much discussion he is willing to give it a try. Past Medical History: Depression PTSD, restless leg syndrome, insomnia, general anxiety disorder, candidiasis, BPH, asthma, headaches, hiatal hernia, osteoarthritis, history of meth/tobacco abuse. Social History - Living Situation Living arrangement: At home Living Situation: With spouse/s.o. Support System: Patient lives with his Anuj, they have been almost 29 years. [place] be with his daughter. Unfortunately she has since moved to [place], he still has family in [place], they live in subsidized apartments in [place]. They have limited transportation, and thus limited as far as managing. They do live within walking distance grocery/pharmacy. Medications/Allergies - Medications Home Medications: Ambulatory Orders Medication Instructions Recorded Confirmed Albuterol Sulfate [Proventil Hfa 1 - 2 puffs IH Q4H PRN #1 08/19/16 06/27/20 Inhaler] [email or web address] Alprazolam [Xanax] 0.5 mg PO TID PRN 04/15/19 06/27/20 Cholecalciferol (Vitamin D3) 4,000 unit PO DAILY 04/15/19 06/27/20 [Vitamin D3] Enzalutamide [Xtandi] 160 mg PO DAILY 04/15/19 06/27/20 HYDROcod/ACETAM 5/325 [[place] 5/325] 1 ea PO BID 04/15/19 06/27/20 Senna [Senokot] 8.6 mg PO BID PRN 04/15/19 06/27/20 Sertraline HCl 125 mg PO DAILY 04/15/19 06/27/20 Betamethasone Valerate 1 gm TOP BID 07/19/19 06/27/20 Ferrous Gluconate [Iron] 1 tab PO DAILY 04/12/20 06/27/20 Nystatin 1 applic TOP BID PRN 04/12/20 06/27/20 - Allergies Allergies/Adverse Reactions: Allergies Allergy/AdvReac Type Severity Reaction Status Date / Time codeine Allergy Rash Verified 06/27/20 12:33 Review of Systems - Constitutional Constitutional: reports: Fatigue (persistent), Weight stable. denies: Fever, Chills - Eyes Eyes: reports: Vision loss - Ears, Nose & Throat Ears, Nose & Throat: reports: Hearing loss, Nasal congestion, Dry mouth - Cardiovascular Cardiovascular: reports: Decr. exercise tolerance. denies: Chest pain, Edema - Respiratory Respiratory: reports: Cough (in am; not worse with fall), SOB with exertion. denies: SOB at rest - Gastrointestinal Gastrointestinal: reports: Early satiety. denies: Constipation, Nausea - Genitourinary Genitourinary: reports: Frequency - Musculoskeletal Musculoskeletal: reports: Back pain, Muscle aches, Stiffness, Muscle weakness, Assistive devices (cane) - Integumentary Integumentary: reports: Dryness - Neurological Neurological: reports: General weakness, Headache, Memory problems (worsening) - Psychiatric Psychiatric: reports: Depression, Anxiety. denies: Suicidal - All Other Systems All Other Systems: reports: Reviewed and negative Physical Exam - Vital Signs Temperature: 36.7 C Pulse Rate: 96 Respiratory Rate: 16 O2 Saturation: 95 Blood Pressure: 125/66 - Physical Exam General Appearance: positive: Alert, Anxious Eyes Bilateral: positive: Normal inspection ENT: positive: No signs of dehydration Neck: positive: Trachea midline Cardiovascular: positive: Regular rate & rhythm Respiratory: positive: No respiratory distress, Diminished in bases. negative: Wheezes, Rales, Rhonchi Abdomen: positive: Non-tender, Soft, Obese Skin: positive: Pallor, Dryness Extremities: positive: No pedal edema Neurologic/Psychiatric: positive: Oriented x3, Mood/affect nml, Weakness, Flat affect Palliative Care - POLST Patient has POLST: No Pain: Pain unchanged, Location (lower back/neck; and acute pain in ribs improved) Tiredness/Fatigue: Severe (7-10) Drowsiness/Sedation: Mild (1-3) Nausea: None Anorexia: Mild (1-3) Dyspnea: Moderate (4-6) Depression: Moderate (4-6) Anxiety: Moderate (4-6) Feelings of wellbeing/Perceived Quality of Life: Fair, Acceptable, No change Sleep: Variable sleep pattern Constipation: No Performance Status: Patient's activity tolerance fluctuates, he is able to ambulate short distances. Unfortunately has had a recent fall with resulting injury. Part of this is numbness and balance. He is able to manage his own ADLs, his does provide oversight for medications and meal prep. - Palliative Care Discussion: No family support appear. They are quite isolated, and further exacerbated by the pandemic. They do stay in constant contact with her daughter by phone who is in [place]. Anuj reports they had finished the DPOA, and had gotten notarized. Unfortunately only we cannot locate it, patient thought he brought it in. Will follow up with office staff. Results - Lab Results Lab results reviewed: Yes Impression and Recommendations - Palliative Care Impression: This is a 74-year-old gentleman currently receiving treatment for his metastatic prostate cancer, has recently established with local oncology, continues to have persistent fatigue, worsening depression and anxiety, and experiencing the effects of increased isolation. Palliative care to provide support for symptom management and coordination of care. Recommendations/Counseling Done: 1. Metastatic prostate cancer. Unfortunately given the pandemic, Anuj was not allowed come in. Patient does have worsening cognitive deficits, with very poor recall of conversation with oncology PA. We will did have Anuj come in for the palliative care visit, did clarify regarding Lupron shot. Patient received 6-month dosing, is not due for until September. They had been under the impression they were going to be getting every 3 months and to get a shot today. We did discuss he would be getting an iron transfusion, patient quite resistant and gets quite anxious in the clinic, particular around any kind of IVs or infusion. We did discuss though given his persistent fatigue it may be worth trying and this was not Zometa. He had bad experiences with Zometa with side effects. 2. Left rib fracture. This is improving, patient is able to take deep breaths, acute pain is resolving. Patient does have long-term chronic pain and is on Vicodin twice daily. Counseling provided given patient's slightly elevated white count, on signs and symptoms if worsening cough, shortness of breath, or persistent worsening weakness. 3. Depression. Patient is currently on sertraline 100 mg and supplemented with trazodone for sleep. We did discuss today he has had persistent depressive feelings, this is also exacerbated by his fatigue, the pandemic, and situation. He would like to trial increasing the sertraline, agreed we would do at a slow pace, both for his anxiety and depression. Prescription for 25 mg tabs to be taken with his 100 mg, written out instructions were reviewed with Anuj as well. 4. Fatigue. This is multifactorial. Patient does have muscle wasting, he has declined physical therapy, and has been encouraged to be more active with walking. They have been trying to ambulate and purposefully increase her activity, but now with weather change and recent fall this is been difficult. Patient to receive iron transfusion, hopefully this will help. 5. Advanced care planning. Unfortunately patient and with very little support, she did report did finish their DPOA paperwork. Unfortunately unable to locate. We will continue to work on further advance care planning documents, as patient is demonstrating both functional, cognitive, and worsening symptom burden. Patient and excepting of palliative care support, continue to build rapport, suspect patient is going to continue to experience ongoing challenges related to his disease and treatment. Time Spent: 30 minutes with greater than 50% of this done in counseling regarding symptom management, coordination of care with oncology team, and anticipatory guidance.
== END 2020-06-27 12:51 | disposition home or self-care (01) ==
LOC: PC 12:50
PROVIDERS: ATTEND Nurse Practitioner Adult Health
DX: Z51.5 Encounter for palliative care (principal); C61 Malignant neoplasm of prostate; R59.0 Localized enlarged lymph nodes; C79.51 Secondary malignant neoplasm of bone; S22.32XD Fracture of one rib, left side, subsequent encounter for fracture with routine healing; W19.XXXD Unspecified fall, subsequent encounter; F32.9 Major depressive disorder, single episode, unspecified; F41.9 Anxiety disorder, unspecified; R53.83 Other fatigue; Z87.891 Personal history of nicotine dependence; Z79.899 Other long term (current) drug therapy
CPT/HCPCS: 99214

== ENCOUNTER 2020-09-25 14:10 | Outpatient (CLI) | payer MEDICARE, MEDICAID ==
--- NOTE | 2020-09-25 15:45 | CONSULTATION NOTE ---
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 He is currently on Xtandi, and continues with fatigue, arthralgias, progressive muscular weakness, and worsening mild cognitive impairment. Patient at last palliative care visit, with increase in his sertraline, because of worsening depression, he does feel like he has had some improvement with this. Patient is quite sedentary and spends most of his time watching TV. His has short-term memory issues as well, but does try to cue him and keep him on track. Though she does report it is worsening. She does not feel like there is been any acute changes but is slow ongoing decline. Past Medical History: Restless leg syndrome, insomnia, general anxiety disorder, candidiasis, BPH, asthma, headaches, hiatal hernia, osteoarthritis, history of meth/tobacco abuse Social History - Living Situation Living arrangement: At home Living Situation: With spouse/s.o. Support System: Patient lives with his Anuj, given almost 30 years. They came up from [place] in 2014 to be with his daughter, alexus Celeste since his move to [place]. [place], lives in subsidized apartments in [place], and have limited transportation. They do live within walking distance of the grocery and pharmacy. Medications/Allergies - Medications Home Medications: Ambulatory Orders Medication Instructions Recorded Confirmed Albuterol Sulfate [Proventil Hfa 1 - 2 puffs IH Q4H PRN #1 08/19/16 09/25/20 Inhaler] [email or web address] Alprazolam [Xanax] 0.5 mg PO TID PRN 04/15/19 09/25/20 Cholecalciferol (Vitamin D3) 4,000 unit PO DAILY 04/15/19 09/25/20 [Vitamin D3] Enzalutamide [Xtandi] 160 mg PO DAILY 04/15/19 09/25/20 HYDROcod/ACETAM 5/325 [[place] 5/325] 1 ea PO BID 04/15/19 09/25/20 Senna [Senokot] 8.6 mg PO BID PRN 04/15/19 09/25/20 Sertraline HCl 125 mg PO DAILY 04/15/19 09/25/20 Betamethasone Valerate 1 gm TOP BID 07/19/19 09/25/20 Ferrous Gluconate [Iron] 1 tab PO DAILY 04/12/20 09/25/20 Nystatin 1 applic TOP BID PRN 04/12/20 09/25/20 - Allergies Allergies/Adverse Reactions: Allergies Allergy/AdvReac Type Severity Reaction Status Date / Time codeine Allergy Rash Verified 09/25/20 13:45 Review of Systems - Constitutional Constitutional: reports: Fatigue (persistent; had not followed through on iron transfusion-did oral), Weight stable. denies: Fever, Chills - Eyes Eyes: reports: Vision loss - Ears, Nose & Throat Ears, Nose & Throat: reports: Hearing loss, Nasal congestion, Dry mouth - Cardiovascular Cardiovascular: reports: Decr. exercise tolerance. denies: Chest pain, Edema - Respiratory Respiratory: reports: Cough (in am; not worse with fall), SOB with exertion. denies: SOB at rest - Gastrointestinal Gastrointestinal: reports: Bloating, Early satiety. denies: Constipation, Nausea - Genitourinary Genitourinary: reports: Frequency - Musculoskeletal Musculoskeletal: reports: Back pain, Muscle aches, Stiffness, Muscle weakness, Assistive devices (cane), Other (patient continues with balance issues; feel again when bent over) - Integumentary Integumentary: reports: Dryness - Neurological Neurological: reports: General weakness, Headache, Memory problems (patient reports worsening; with concerns; feels has been a gradual decline no acute changes) - Psychiatric Psychiatric: reports: Depression (reports some improvement with increase of sertraline), Anxiety. denies: Suicidal - Hematologic/Lymphatic Hematologic/Lymph: reports: Anemia - All Other Systems All Other Systems: reports: Reviewed and negative Physical Exam - Vital Signs Temperature: 36.4 C Pulse Rate: 87 Respiratory Rate: 16 O2 Saturation: 96 Blood Pressure: 127/71 - Physical Exam General Appearance: positive: Alert, Anxious Eyes Bilateral: positive: Normal inspection ENT: positive: No signs of dehydration Neck: positive: Trachea midline Cardiovascular: positive: Regular rate & rhythm Respiratory: positive: No respiratory distress Abdomen: positive: Soft, Obese Skin: positive: Pallor, Dryness Extremities: positive: No pedal edema, Other (gait shuffled; using cane for balance) Neurologic/Psychiatric: positive: Oriented x3, Mood/affect nml, Weakness, Flat affect Palliative Care - POLST Patient has POLST: No Pain: Pain unchanged, Location (back), Severity (5/10 chronic), Comment (uses intermittent Vicodin with relief) Tiredness/Fatigue: Moderate (4-6) Drowsiness/Sedation: None Nausea: None Anorexia: Moderate (4-6) Dyspnea: None Depression: Severe (7-10) Anxiety: Moderate (4-6) Feelings of wellbeing/Perceived Quality of Life: Fair, Acceptable, Worsening Sleep: Variable sleep pattern Constipation: Yes, Opoid induced, Managed Performance Status: Patient with poor activity tolerance, is quite sedentary watches TV most the time. There is helping with laundry and dishes. Does tire with short distances, they do need to go to the pharmacy and grocery store at times. With his memory issues, she is quite frightened to leave him alone, as he forgets that she is gone and gets anxious - Palliative Care Discussion: They continue to be challenged with his declining health, particularly with his memory issues. She does try and provide oversight, the patient still continues with poor judgment and intermittent falls. They have very little family support appear, have not really made any plans for any further decline related to his cancer diagnosis. Because of his anxiety, is very hard for them to engage any kind of long-term planning conversations. Results - Lab Results Lab results reviewed: Yes Impression and Recommendations - Palliative Care Impression: This is a 74-year-old gentleman currently receiving treatment for his metastatic prostate cancer, receiving Lupron, continues with persistent fatigue, depression is improved with increase of medications, has persistent anxiety, and worsening memory issues. Palliative care to provide support for symptom management and coordination of care. Recommendations/Counseling Done: 1. Metastatic prostate cancer. Anuj was allowed, and, this is of much support to both Anuj and the patient. He had agreed to get an iron transfusion last time when it came down to he refused. Those counts have improved with just oral iron. He continues to have persistent fatigue, though I suspect this is multifactorial. He continues on his oral Xtandi, Anuj says they have been managing and able to adhere to his schedule. 2. Depression. Patient's sertraline was increased to 125 mg, patient feels like there may have been some improvement, though he does have poor recall. Patient currently at 125, may benefit from increasing dose, though will continue evaluate. Both patient and have very little support, though they stay in contact by phone with her family and still voiced concerns regarding if patient were to continue decline, she does feel like they could go stay with daughter in [place]. 3. MCI. Patient does continue to progress with his short-term memory issues, Anuj is describing some symptoms of early dementia, with increased confusion, short-term memory issues worsening, and needing cueing on a regular basis. She feels currently that it has been a slow decline, and is managing, will continue to monitor. May benefit from serial MMSE or SLUMS with next visit. 4. Advanced care planning. Unfortunately patient and with very little support in the area, does need to complete further advance care planning documents so this makes him quite anxious to do any long-term planning. We will continue to monitor, and implement planning as patient and family able to absorb. 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 Counseling provided regarding anticipatory guidance.
== END 2020-09-25 14:11 | disposition home or self-care (01) ==
LOC: PC 14:10
PROVIDERS: ATTEND Nurse Practitioner Adult Health
DX: Z51.5 Encounter for palliative care (principal); C61 Malignant neoplasm of prostate; F32.9 Major depressive disorder, single episode, unspecified; G31.84 Mild cognitive impairment of uncertain or unknown etiology; C79.51 Secondary malignant neoplasm of bone; Z87.891 Personal history of nicotine dependence
CPT/HCPCS: 99213

== ENCOUNTER 2021-02-08 09:30 | Outpatient (CLI) | payer MEDICARE, MEDICAID ==
--- NOTE | 2021-02-08 10:55 | CONSULTATION NOTE ---
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 He is currently on Xtandi, continues with fatigue, arthralgias, progressive muscular Weakness, and progressive mild cognitive impairment. Patient is quite sedentary, spends most of his time watching TV, though they do get out several times a week to walk to the store, drugstore, and pharmacy. He had a fall about 2 weeks ago, does not remember precipitating factors, found him on his knees, has still residual left knee swelling. Though it is continue to improve and no interference with ambulation. also notes patient with fluctuating mood issues, and needing more oversight with his cognitive decline. Patient's long-term had chronic back pain, chronic anxiety, is mildly depressed her report, but feels manageable. He is very distrustful of the medical system, and gets very anxious. He is though planning to get the Covid shot, given his anxiety as looking at the [employer] 1 shot. Past Medical History: Restless leg syndrome, insomnia, general anxiety disorder, candidiasis, BPH, asthma, headaches, hiatal hernia, osteoarthritis, history of meth/tobacco/alcohol abuse. Social History - Living Situation Living arrangement: At home Living Situation: With spouse/s.o. Support System: Patient lives with his Anuj, they have been over 30 years just celebrated her 30-year anniversary. They came up in [place] in 2014 to be with their daughter, unfortunately she has since moved to [place], he has several children and one is getting this fall. They live in subsidized apartments in [place], have limited transportation. Medications/Allergies - Medications Home Medications: Ambulatory Orders Medication Instructions Recorded Confirmed Albuterol Sulfate [Proventil Hfa 1 - 2 puffs IH Q4H PRN #1 08/19/16 02/08/21 Inhaler] [email or web address] ALPRAZolam [Xanax] 0.5 mg PO BID PRN 04/15/19 02/08/21 Cholecalciferol (Vitamin D3) 4,000 unit PO DAILY 04/15/19 02/08/21 [Vitamin D3] Enzalutamide [Xtandi] 160 mg PO DAILY 04/15/19 02/08/21 HYDROcod/ACETAM 5/325 [[place] 5/325] 1 ea PO BID 04/15/19 02/08/21 Senna [Senokot] 8.6 mg PO BID PRN 04/15/19 02/08/21 Sertraline HCl 125 mg PO DAILY 04/15/19 02/08/21 Betamethasone Valerate 1 gm TOP BID 07/19/19 02/08/21 Ferrous Gluconate [Iron] 1 tab PO DAILY 04/12/20 02/08/21 - Allergies Allergies/Adverse Reactions: Allergies Allergy/AdvReac Type Severity Reaction Status Date / Time codeine Allergy Rash Verified 09/25/20 13:45 Review of Systems - Constitutional Constitutional: reports: Fatigue (persistent), Weight stable (220 but appears thinner and muscle wasting UE and LE). denies: Fever, Chills - Eyes Eyes: reports: Vision loss - Ears, Nose & Throat Ears, Nose & Throat: reports: Hearing loss, Nasal congestion, Dry mouth - Cardiovascular Cardiovascular: reports: Decr. exercise tolerance. denies: Chest pain, Edema - Respiratory Respiratory: reports: SOB with exertion. denies: SOB at rest - Gastrointestinal Gastrointestinal: reports: Early satiety. denies: Constipation, Nausea - Genitourinary Genitourinary: reports: Frequency, Other (struggles with rash as is not circumsized) - Musculoskeletal Musculoskeletal: reports: Back pain, Muscle aches, Stiffness, Muscle weakness, Assistive devices (cane), Other (patient with balance issues; fall two weeks ago with) - Integumentary Integumentary: reports: Dryness - Neurological Neurological: reports: General weakness, Headache, Memory problems (patient reports worsening; with concerns; feels has been a gradual decline no acute changes) - Psychiatric Psychiatric: reports: Depression (reports some improvement with increase of sertraline), Anxiety. denies: Suicidal - Hematologic/Lymphatic Hematologic/Lymph: reports: Anemia - All Other Systems All Other Systems: reports: Reviewed and negative Physical Exam - Vital Signs Temperature: 97.3 C Pulse Rate: 66 Respiratory Rate: 16 O2 Saturation: 97 Blood Pressure: 112/72 - Physical Exam General Appearance: positive: Alert, Anxious Eyes Bilateral: positive: Normal inspection ENT: positive: No signs of dehydration Neck: positive: Trachea midline Cardiovascular: positive: Regular rate & rhythm Respiratory: positive: No respiratory distress, Diminished throughout. negative: Wheezes, Rales, Rhonchi Abdomen: positive: Soft, Obese Skin: positive: Pallor, Dryness Extremities: positive: No pedal edema, Joint swelling (left knee with mild swelling from fall; fading hematoma), Other (gait shuffled; using cane for balance) Neurologic/Psychiatric: positive: Oriented x3, Mood/affect nml, Weakness, Flat affect Palliative Care - POLST Patient has POLST: No POLST Status: Full Code Pain: Pain unchanged, Location (low back), Severity (mod with meds), Comment (Uses Vicodin mostly at bedtime, occasionally during the morning if exacerbated.) Tiredness/Fatigue: Moderate (4-6) Drowsiness/Sedation: Moderate (4-6) Nausea: None Anorexia: Moderate (4-6) Dyspnea: Mild (1-3) Depression: Mild (1-3) Anxiety: Moderate (4-6) Feelings of wellbeing/Perceived Quality of Life: Good, Acceptable, No change Sleep: Sleep improved Constipation: Yes, Opoid induced, Managed Performance Status: Patient is ambulatory in his apartment, can get from sitting to standing. He is able to manage his own ADLs. He does help with some of the household tasks. - Palliative Care Discussion: Patient does get quite frustrated with his short-term memory deficits, but overall feels like he is doing fairly well. They try to find a rhythm, gets very anxious when he needs to go out for medical appointments. They are looking forward to a wedding and seeing family this fall. He and Anuj pretty much live in the moment, and feel like they are getting by. Patient easily engages in conversation, but has very little understanding of his medical condition, his manages medications but can get overwhelmed as well. Palliative care providing support, continue to build rapport to be able to better support future decision making and planning. Results - Lab Results Lab results reviewed: Yes Impression and Recommendations - Palliative Care Impression: This is a 74-year-old gentleman currently receiving treatment for metastatic prostate cancer, with Xtandi and Lupron. Has mild to moderate symptom burden with persistent fatigue, long-term chronic depression and anxiety, and worsening memory issues. This is in the context of poor social support. Palliative care to provide support for symptom management, psychosocial support, and coordination of care. Recommendations/Counseling Done: 1. Metastatic prostate cancer. Patient continues on the Xtandi, and Lupron shots. He was quite distressed of gotten it in the arm this last time, and cont inues with very poor insight into his treatment and understanding of his overall disease and trajectory. They are managing at this time, patient does not present with any exacerbation of pain, though does have muscle wasting. 2. MCI. This is quite challenging for Anuj, patient is needing more cueing and reminding. Patient does get frustrated and short around this, may be having some intermittent paranoia. Will defer the SLUMS for now, given patients issues and little to gain at this time from this. 3. Chronic back pain. Patient taking Vicodin in the evenings, intermittently in the a.m. with exacerbation of pain. No changes in his pain levels, will continue with current dosing of hydrocodone 5 mg / 325 mg 1-2 daily. New Rx provided. 4. General anxiety disorder. This is exacerbated by his frustration and worsening memory issues. We will continue to monitor, is currently on alprazolam 0.5 mg twice daily and sertraline, no changes made. 5. Advanced care planning. Patient gets quite anxious when visiting these issues, very clear he does not want to be "a vegetable". Both patient and have very little support in the area, will continue to build rapport and revisit goals as able. 45 minutes with greater than 50% of this done in counseling regarding symptom management, psychosocial support, review of medications, and anticipatory guidance
== END 2021-02-08 09:31 | disposition home or self-care (01) ==
LOC: PC 09:30
PROVIDERS: ATTEND Nurse Practitioner Adult Health
DX: Z51.5 Encounter for palliative care (principal); C61 Malignant neoplasm of prostate; C77.2 Secondary and unspecified malignant neoplasm of intra-abdominal lymph nodes; C79.51 Secondary malignant neoplasm of bone; R53.83 Other fatigue; R41.81 Age-related cognitive decline; G25.81 Restless legs syndrome; G47.00 Insomnia, unspecified; F41.9 Anxiety disorder, unspecified; F32.9 Major depressive disorder, single episode, unspecified; F10.11 Alcohol abuse, in remission; F15.11 Other stimulant abuse, in remission; G89.29 Other chronic pain; M54.9 Dorsalgia, unspecified; Z91.81 History of falling; Z79.899 Other long term (current) drug therapy; Z87.891 Personal history of nicotine dependence
CPT/HCPCS: 99349

== ENCOUNTER 2021-05-03 13:40 | Outpatient (CLI) | payer MEDICARE, MEDICAID ==
--- NOTE | 2021-05-03 16:48 | CONSULTATION NOTE ---
Palliative Care Follow Up - Referral Referring Provider: Dr. 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 He is currently on Xtandi, continues with persistent and worsening fatigue, arthralgias, progressive muscular weakness, and has mild cognitive impairment at baseline. Patient is quite sedentary, spends most of his time watching TV, he is able to ambulate some days and get out to do store/drug story/pharmacy. Patient continues with fluctuating mood and issues, and does need some oversight related to his cognitive decline. Had missed his last Lupron shot, secondary to scheduling issues, and poor problem-solving regarding follow-up. Patient's long-term had chronic back pain, chronic anxiety, is very distrustful of the medical system and gets very anxious. He is here today with his , is engaging in conversation and exam, appears in a good mood. Gait is slightly unsteady, he is using cane. Patient had missed his labs secondary to scheduling issues, will have drawn at today's appointment. Past Medical History: Restless leg syndrome, insomnia, general anxiety disorder, intermittent candidiasis, BPH, GERD asthma, headaches, hiatal hernia, osteoarthritis, history of meth/tobacco/alcohol abuse. Social History - Living Situation Living arrangement: At home Living Situation: With spouse/s.o. Support System: Patient lives with his Anuj, they have been over 30 years. He came up to [place] in 2014 to be with her daughter Radha, unfortunate she has since moved to [place] though they do hear from her frequently. He does have 10 children, 8 of who are alive, somewhere in the [place] area but very little support. They live in subsidized apartments in [place], have limited transportation. The medical palliative care social sciences department chair recently helped him resolve some issues around the insurance. They are quite grateful for this. Medications/Allergies - Medications Home Medications: Ambulatory Orders Medication Instructions Recorded Confirmed Albuterol Sulfate [Proventil Hfa 1 - 2 puffs IH Q4H PRN #1 08/19/16 05/04/21 Inhaler] [email or web address] ALPRAZolam [Xanax] 0.5 mg PO BID PRN 04/15/19 05/04/21 Cholecalciferol (Vitamin D3) 4,000 unit PO DAILY 04/15/19 05/04/21 [Vitamin D3] Enzalutamide [Xtandi] 160 mg PO DAILY 04/15/19 05/04/21 HYDROcod/ACETAM 5/325 [[place] 5/325] 1 ea PO BID 04/15/19 05/04/21 Senna [Senokot] 8.6 mg PO BID PRN 04/15/19 05/04/21 Sertraline HCl 125 mg PO DAILY 04/15/19 05/04/21 Betamethasone Valerate 1 gm TOP BID 07/19/19 05/04/21 Ferrous Gluconate [Iron] 1 tab PO DAILY 04/12/20 05/04/21 - Allergies Allergies/Adverse Reactions: Allergies Allergy/AdvReac Type Severity Reaction Status Date / Time codeine Allergy Rash Verified 09/25/20 13:45 Review of Systems - Constitutional Constitutional: reports: Fatigue (persistent), Weight stable (220 but appears thinner and muscle wasting UE and LE). denies: Fever, Chills - Eyes Eyes: reports: Vision loss - Ears, Nose & Throat Ears, Nose & Throat: reports: Hearing loss, Nasal congestion, Dry mouth - Cardiovascular Cardiovascular: reports: Decr. exercise tolerance. denies: Chest pain, Edema - Respiratory Respiratory: reports: SOB with exertion. denies: SOB at rest - Gastrointestinal Gastrointestinal: reports: Early satiety. denies: Constipation, Nausea - Genitourinary Genitourinary: reports: Frequency, Other (struggles with rash as is not circumsized) - Musculoskeletal Musculoskeletal: reports: Back pain, Muscle aches, Stiffness, Muscle weakness, Assistive devices (cane), Other (patient with balance issues; fall two weeks ago with) - Integumentary Integumentary: reports: Dryness - Neurological Neurological: reports: General weakness, Headache, Memory problems (patient reports worsening; with concerns; feels has been a gradual decline no acute changes) - Psychiatric Psychiatric: reports: Depression (reports some improvement with increase of sertraline), Anxiety. denies: Suicidal - Hematologic/Lymphatic Hematologic/Lymph: reports: Anemia - All Other Systems All Other Systems: reports: Reviewed and negative Physical Exam - Vital Signs Temperature: 36.7 C Respiratory Rate: 18 Blood Pressure: 109/68 - Physical Exam General Appearance: positive: Alert, Anxious Eyes Bilateral: positive: Normal inspection ENT: positive: No signs of dehydration Neck: positive: Trachea midline Cardiovascular: positive: Regular rate & rhythm Respiratory: positive: No respiratory distress, Diminished throughout. negative: Wheezes, Rales, Rhonchi Abdomen: positive: Soft, Obese Skin: positive: Pallor, Dryness Extremities: positive: No pedal edema, Other (gait shuffled; using cane for balance) Neurologic/Psychiatric: positive: Oriented x3, Mood/affect nml, Weakness, Flat affect Palliative Care - POLST Patient has POLST: No POLST Status: Full Code Pain: Pain unchanged, Location (back) Feelings of wellbeing/Perceived Quality of Life: Good, Acceptable, Worsening Sleep: Variable sleep pattern Constipation: Yes, Managed Performance Status: Patient having more days where he is having difficulty with ambulation. He continues to help with household tasks of laundry and garbage, does manage his own ADLs. - Palliative Care Discussion: Patient and feel like they are getting along fairly well, did give me permission to follow-up with her daughter Radha. He does get quite anxious when he needs to go out for medical appointments, he is doing very well today and engaged with clinical staff and myself. Patient has very little insight or understanding of his condition, her is trying to oversee and manage that this gets overwhelming for her at times. Palliative care continue provide support and build rapport to better support future decision making and planning. Impression and Recommendations - Palliative Care Impression: This is a 75-year-old gentleman currently receiving treatment for metastatic prostate cancer with Xtandi and Lupron. He has mild to moderate symptom burden with persistent fatigue, long-term chronic depression and anxiety, and worsening memory issues. Patient continues with moderate functional decline, has lost 10 pounds since summer, reports early satiety. Patient also has poor social support, and patient get easily overwhelmed. Palliative care continue provide support for symptom management, psychosocial support and coordination of care. Recommendations/Counseling Done: 1. Metastatic prostate cancer. Patient continues on Xtandi and Lupron shots. Unfortunately had missed his last Lupron shot, was able to assist patient in rescheduling appointment but did not get labs. In review of labs ordered, PSA is missing, will follow up and get drawn locally. Patient with very poor insi ght into his treatment and understanding of his overall disease and its trajectory. They are currently managing at this time, patient does not present with an exacerbation of pain but does have continued muscle wasting and some functional decline. 2. MCI. This is quite challenging for Anuj his , patient is needing more cueing reminding. Patient gets quite frustrated and sometimes has some intermittent paranoia. We will continue to monitor. 3. Chronic back pain. Patient takes Vicodin in the evening, intermittently in the a.m. with exacerbation of pain. No changes in his pain levels, will continue with current dosing of hydrocodone 5 mg / 325 mg 1-2 daily. 4. Generalized anxiety disorder. This gets exacerbated by his frustration and worsening memory issues, will continue to monitor, patient is currently on alprazolam 0.5 mg twice a day and sertraline, no changes made. They have been introduced to the medical palliative care social sciences department chair, I who will be available if except further assistance or support. 5. Advanced care planning. Patient is quite anxious with disease in these issues, they had made progress and feel that a DPOA, unfortunately no one is now able type locate this. Both patient and have very little support in the area, will continue build rapport and revisit goals as able. Was given permission to reach out to their daughter Radha, will make contact her with her when PSA available. 45 minutes with review of chart, coordination of care with oncology team, [id number] with counseling regarding symptom management, psychosocial support, review of medications and anticipatory guidance
== END 2021-05-03 13:41 | disposition home or self-care (01) ==
LOC: PC 13:40
PROVIDERS: ATTEND Nurse Practitioner Adult Health
DX: Z51.5 Encounter for palliative care (principal); C61 Malignant neoplasm of prostate; C77.2 Secondary and unspecified malignant neoplasm of intra-abdominal lymph nodes; C79.51 Secondary malignant neoplasm of bone; R53.83 Other fatigue; M25.50 Pain in unspecified joint; M62.81 Muscle weakness (generalized); G89.29 Other chronic pain; F41.9 Anxiety disorder, unspecified; R26.81 Unsteadiness on feet; G25.81 Restless legs syndrome; G47.00 Insomnia, unspecified; M54.9 Dorsalgia, unspecified; K21.9 Gastro-esophageal reflux disease without esophagitis; J45.909 Unspecified asthma, uncomplicated; R51.9 Headache, unspecified; K44.9 Diaphragmatic hernia without obstruction or gangrene; F10.11 Alcohol abuse, in remission; F15.11 Other stimulant abuse, in remission; Z87.891 Personal history of nicotine dependence; Z79.891 Long term (current) use of opiate analgesic; Z79.899 Other long term (current) drug therapy; H54.7 Unspecified visual loss; H91.90 Unspecified hearing loss, unspecified ear; N40.1 Benign prostatic hyperplasia with lower urinary tract symptoms; R35.0 Frequency of micturition; Z91.81 History of falling; F32.9 Major depressive disorder, single episode, unspecified; F06.8 Other specified mental disorders due to known physiological condition
CPT/HCPCS: 99215

== ENCOUNTER 2021-10-26 13:00 | Outpatient (CLI) | payer MEDICARE, MEDICAID ==
--- NOTE | 2021-10-26 16:19 | CONSULTATION NOTE ---
Palliative Care Follow Up - Referral Referring Provider: Dr. Omi Hugo Time of Visit: [id number] Referral setting: Home Referral Reason: Insomnia/Left arm pain/Met Prostate CA/anxiety/depression - Information Sources Records reviewed: Previous records reviewed History/Review of Systems obtained from: Patient, Family ( Marie present) Exam limitations: Clinical condition (patient with STM/MCI) - History of Present Illness Update Brief HPI Update: This is a 76-year-old gentleman with known castration resistant prostate cancer, with abdominal adenopathy and bone mets since 02/2015. Patient continues on Xtandi, has persistent fatigue, arthralgias, progressive muscular weakness and mild cognitive impairment at baseline. Today presents with new onset of left arm pain, with point tenderness over shoulder area. Also with limited range of motion, unable to lift past 45 degrees without assisted leverage of right arm. This is a new finding. Denies trauma, noted only in the last week, wonders if it just "arthritis". Denies numbness, sharp shooting or tingling pain, but is concerned. Patient has long-term chronic back pain, now acute pain in left shoulder, diffuse arthralgias overall, and does have history of significant anxiety/PTSD/depression. Patient does vape marijuana on regular basis, uses hy drocodone 5 mg / 325 mg 1 tab twice daily occasionally 3 times daily, as well as alprazolam and sertraline for anxiety. Patient reports worsening insomnia, on review, patient is eating literally, johnston dful of melatonin 10 mg Gummies at bedtime. Reviewed high doses of melatonin is activating not sedating. Patient also reports 20 pound weight loss over the last several months, with early satiety, patient is eating mostly sweets and drinking sodas, denies nausea, does offer up healthy meals but patient chooses to eat very little. Patient does have mild cognitive impairment, very little insight other than has some memory problems. Does get easily frustrated and irritable with his in the context of this, she tries to walk a fine balance around his mood fluctuations. Past Medical History: RLS, insomnia, CARROLL, intermittent candidiasis, BPH, GERD, asthma, headaches, hiatal hernia, osteoarthritis, history of meth/tobacco/alcohol abuse Social History - Living Situation Living arrangement: At home Living Situation: With spouse/s.o. Support System: Patient lives with his Anuj, they have been over 30 years. He cannot do what she did in 2015 to be with her daughter Radha, who has since moved to [place] though she calls him daily for support. He does have 10 children, 8 of who are alive and somewhat estranged. He does have another son who stays in close contact who does live in [place]. They live in subsidized apartments in [place], have limited transportation and community support. They live a fairly isolated life. Medications/Allergies - Medications Home Medications: Ambulatory Orders Medication Instructions Recorded Confirmed Albuterol Sulfate [Proventil Hfa 1 - 2 puffs IH Q4H PRN #1 08/19/16 10/26/21 Inhaler] hfa.aer.ad ALPRAZolam [Xanax] 0.5 mg PO BID PRN 04/15/19 10/26/21 Cholecalciferol (Vitamin D3) 4,000 unit PO DAILY 04/15/19 10/26/21 [Vitamin D3] Enzalutamide [Xtandi] 160 mg PO DAILY 04/15/19 10/26/21 HYDROcod/ACETAM 5/325 [[place] 5/325] 1 ea PO BID 04/15/19 10/26/21 Senna [Senokot] 8.6 mg PO BID PRN 04/15/19 10/26/21 Sertraline HCl 125 mg PO DAILY 04/15/19 10/26/21 Betamethasone Valerate 1 gm TOP BID 07/19/19 10/26/21 Ferrous Gluconate [Iron] 1 tab PO DAILY 04/12/20 10/26/21 Melatonin 5 - 10 mg PO QPM 10/26/21 10/26/21 Mirtazapine [Remeron] 7.5 mg PO QPM 10/26/21 10/26/21 - Allergies Allergies/Adverse Reactions: Allergies Allergy/AdvReac Type Severity Reaction Status Date / Time codeine Allergy Rash Verified 09/25/20 13:45 Review of Systems - Constitutional Constitutional: reports: Fatigue (persistent), Weight loss (200 loss of 20 pounds since last visit). denies: Fever, Chills - Eyes Eyes: reports: Vision loss - Ears, Nose & Throat Ears, Nose & Throat: reports: Hearing loss, Nasal congestion, Dry mouth - Cardiovascular Cardiovascular: reports: Decr. exercise tolerance. denies: Chest pain, Edema - Respiratory Respiratory: reports: SOB with exertion. denies: SOB at rest - Gastrointestinal Gastrointestinal: reports: Poor appetite, Early satiety. denies: Constipation, Nausea - Genitourinary Genitourinary: reports: Frequency, Other (struggles with rash as is not circumsized) - Musculoskeletal Musculoskeletal: reports: Back pain, Muscle aches, Stiffness, Limited range of motion (left arm new), Muscle weakness, Assistive devices (cane), Other (patient with balance issues; denies recent falls) - Integumentary Integumentary: reports: Dryness - Neurological Neurological: reports: General weakness, Headache, Memory problems (patient reports worsening; with concerns; feels has been a gradual decline no acute changes) - Psychiatric Psychiatric: reports: Depression, Anxiety. denies: Suicidal - Hematologic/Lymphatic Hematologic/Lymph: reports: Anemia - All Other Systems All Other Systems: reports: Reviewed and negative Physical Exam - Vital Signs Temperature: 96.5 C Pulse Rate: 54 Respiratory Rate: 16 O2 Saturation: 98 Blood Pressure: 102/64 - Physical Exam General Appearance: positive: No acute distress, Alert Eyes Bilateral: positive: Normal inspection ENT: positive: No signs of dehydration Neck: positive: Trachea midline Cardiovascular: positive: Regular rate & rhythm Respiratory: positive: No respiratory distress, Diminished throughout. negative: Wheezes, Rales, Rhonchi Abdomen: positive: Non-tender, Soft Skin: positive: Pallor, Dryness Extremities: positive: No pedal edema, Other (gait shuffled; using cane for balance). negative: Full ROM (limited ROM on left arm; pain with assisted movement) Neurologic/Psychiatric: positive: Oriented x3, Mood/affect nml, Weakness, Flat affect Palliative Care - POLST Patient has POLST: No POLST Status: Full Code Pain: Pain unchanged (baseline back/chronic), Pain worsening (new acute left arm pain) Feelings of wellbeing/Perceived Quality of Life: Good, Acceptable, Worsening Sleep: Sleeps poorly Constipation: No Performance Status: Patient continues have slow decline in functional status, ambulating short distances secondary to activity intolerance, fatigues quickly. He continues to try and help with household tasks, and does manage his own ADLs. - Palliative Care Discussion: Patient and much more relaxed in home setting, will plan to do home visits as is much more revealing in the context of information and sharing. They get easily overwhelmed with medical appointments, are very introverted and isolated in their current setting though family does check on them regularly. They did go to his sons for Harry for few days, which they were very animated and sharing their experience and enjoyed this. Patient quite reflective and that he has had many family members with cancer, who passed at younger age. They do perceive they are doing fairly well, though are concerned regarding patient's new finding with limited range of motion on left and increased pain in her arm. Results - Lab Results Lab results reviewed: Yes Impression and Recommendations - Palliative Care Impression: This is a 76-year-old gentleman currently receiving treatment for metastatic prostate cancer with Xtandi and Lupron. He continues with mild to moderate symptom burden with persistent fatigue, mild long-term chronic depression/anxiety, and worsening memory issues. Presents today with acute pain and limited range of motion left arm, unclear etiology with no recent trauma. Patient continues with weight loss, reports early satiety. Palliative care continue provide support for symptom management, psychosocial support and coordination of care. Recommendations/Counseling Done: 1. Left arm pain with limited range of motion. Unclear etiology, denies any trauma. Patient does have longstanding osteoarthritis, though this appears somewhat acute in onset. Patient does have known metastatic bone disease, will reach out to oncology regarding follow-up on imaging, instructed can increase hydrocodone use 5 mg / 325 mg APAP if needed. 2. MCI.This is quite challenging for Anuj, patient need more cueing reminding, patient gets frustrated and has intermittent paranoia. We will continue to monitor, but may benefit from the addition of the mirtazapine. 3. Generalized anxiety disorder. This does get exacerbated by his frustration and worsening memory issues, currently on and long-term alprazolam 0.5 mg twice a day and sertraline, no changes made. Patient does have underlying PTSD and vapes marijuana constantly. reports his mood fluctuations are better with the use of marijuana. 4. Generalized weakness. This is multifactorial, including ongoing weight loss, muscle wasting upper and lower extremity. Patient does have balance issues. Counseling provided regarding progressive ambulation, does have nice parking lot around their apartments, encouraged to go walking daily. 5. Anorexia. This is been fairly persistent, patient has lost another 20 pounds since last seen in April, will initiate mirtazapine 7.5 mg at bedtime, patient also complained of sleep issues, will treat out trazodone. Patient eats mostly sugar, likes drinking soda pops, counseling provided regarding healthy eating and recommendations. 6. Insomnia. Patient had been literally taking handfuls of melatonin Gummies, instructed to decrease to half to 1-10 mg gummy only. Increase trazodone to 1- 1/2 tabs until gets new Prescription of mirtazapine. Counseling provided regarding new medication, written instructions provided given both patient and easily overwhelmed with medication management. 7. Advanced care planning. Patient gets quite anxious regarding live long-term planning and discussion about decline. Both patient and have very little support in the area, but daughter calls frequently. We will continue to build rapport and revisit goals as things progress. 2. 45 minutes with greater than 50% of this done in counseling regarding symptom management, coordination of care with oncology team, psychosocial support and anticipatory guidance.
== END 2021-10-26 13:01 | disposition home or self-care (01) ==
LOC: PC 13:00
PROVIDERS: ATTEND Nurse Practitioner Adult Health
DX: Z51.5 Encounter for palliative care (principal); G89.3 Neoplasm related pain (acute) (chronic); C61 Malignant neoplasm of prostate; C79.51 Secondary malignant neoplasm of bone; G89.29 Other chronic pain; Z79.891 Long term (current) use of opiate analgesic; Z79.899 Other long term (current) drug therapy; R63.4 Abnormal weight loss; R53.83 Other fatigue; M79.602 Pain in left arm; F41.1 Generalized anxiety disorder; R63.0 Anorexia; G47.00 Insomnia, unspecified; R53.1 Weakness; G31.84 Mild cognitive impairment of uncertain or unknown etiology; Z60.8 Other problems related to social environment
CPT/HCPCS: 99349

== ENCOUNTER 2024-01-13 08:00 | Outpatient (CLI) | payer MEDICARE, MEDICAID | END 2024-01-14 23:59 | disposition home or self-care (01) | LOC: PC 08:00 | PROVIDERS: ATTEND Nurse Practitioner Adult Health | DX: Z51.5 Encounter for palliative care (principal); R25.1 Tremor, unspecified; M62.81 Muscle weakness (generalized); G31.84 Mild cognitive impairment of uncertain or unknown etiology; C61 Malignant neoplasm of prostate; C79.51 Secondary malignant neoplasm of bone; M17.12 Unilateral primary osteoarthritis, left knee; F41.9 Anxiety disorder, unspecified; D64.9 Anemia, unspecified; M25.511 Pain in right shoulder; M25.512 Pain in left shoulder; Z71.89 Other specified counseling | CPT/HCPCS: 99349 ==

== ENCOUNTER 2024-02-11 08:00 | Outpatient (CLI) | payer MEDICARE, MEDICAID | END 2024-02-11 23:59 | disposition home or self-care (01) | LOC: PC 08:00 | PROVIDERS: ATTEND Nurse Practitioner Adult Health | DX: Z51.5 Encounter for palliative care (principal); C61 Malignant neoplasm of prostate; C79.51 Secondary malignant neoplasm of bone | CPT/HCPCS: 99426 ==

== ENCOUNTER 2024-03-08 11:47 | Emergency (ER) | payer MEDICARE, MEDICAID ==
[2024-03-08] MEDS ORDERED: iohexoL-300 100 ML VIAL ONE (15:03)
[2024-03-08 15:41] LABS: ALBUMIN 4.5 g/dL (3.2-5.5); ALBUMIN/GLOBULIN RATIO 1.3 (1.0-2.2); BILIRUBIN,TOTAL 0.8 mg/dL (0.2-1.0); CALCIUM 9.8 mg/dL (8.5-10.3); CREATININE 0.8 mg/dL (0.6-1.3); POTASSIUM 3.4 mmol/L (3.5-4.5); TOTAL PROTEIN 8.1 g/dL (6.4-8.9); TROPONIN I HIGH SENSITIVITY 3.4 ng/L (2.3-19.7)
[2024-03-08 15:43] LABS: BASOPHILS # (AUTO) 0.1 10^3/uL (0.0-0.1); BASOPHILS % (AUTO) 1.1 %; EOSINOPHILS # (AUTO) 0.3 10^3/uL (0.0-0.7); EOSINOPHILS % (AUTO) 2.7 %; HCT - HEMATOCRIT 37.7 % (42.0-52.0); HGB - HEMOGLOBIN 12.2 g/dL (14.0-18.0); LYMPHOCYTES # (AUTO) 2.6 10^3/uL (1.5-3.5); LYMPHOCYTES % (AUTO) 24.2 %; MEAN CORPUSCULAR HGB CONC 32.4 g/dL (32.0-36.0); MEAN CORPUSCULAR VOLUME 86.7 fL (80.0-94.0); MEAN PLATELET VOLUME 9.3 fL (7.4-11.4); MONOCYTES # (AUTO) 1.1 10^3/uL (0.0-1.0); MONOCYTES % (AUTO) 10.8 %; NEUTROPHILS # (AUTO) 6.4 10^3/uL (1.5-6.6); NEUTROPHILS % (AUTO) 60.9 %; PLT - PLATELET COUNT 281 10^3/uL (130-450); RED BLOOD COUNT 4.35 10^6/uL (4.70-6.10); RED CELL DISTRIBUTION WIDTH 16.5 % (12.0-15.0); WHITE BLOOD COUNT 10.6 x10^3/uL (4.8-10.8)
--- NOTE | 2024-03-08 16:03 | CT Report ---
PROCEDURE: Angio Chest INDICATIONS: CHEST PAIN, PE PROTOCOL CONTRAST: omni 300 80ml TECHNIQUE: After the administration of intravenous contrast, 2 mm axial images were acquired from the pulmonary apices to the posterior costophrenic angles during the arterial phase. In addition, 1 mm lung kernel and 5 mm soft tissue kernel reconstructions were performed. 3-dimensional coronal oblique maximum int ensity projection (MIP) reformats, 8 mm axial MIP, and 5 mm coronal and sagittal MPR reformats were t hen performed through the thorax. For radiation dose reduction, the following was used: automated exp osure control, adjustment of mA and/or kV according to patient size. COMPARISON: None. FINDINGS: Image quality: Excellent. Large vessels: No acute pulmonary emboli. Mild aneurysmal dilatation of the ascending aorta, measurin g 4.2 cm. No aortic dissection. Lungs and pleura: No consolidation. No pleural effusions. No pneumothorax. No suspicious pulmonary n odules which require follow up. Mediastinum: Heart size is normal. No pericardial effusion. No large vessel abnormality. No mediastin al adenopathy by size criteria. Chest wall and lower neck: Thyroid is unremarkable. No axillary or supraclavicular adenopathy by size . Bones: No aggressive osseous abnormality. Upper Abdomen: Unremarkable. IMPRESSION: 1. No acute pulmonary emboli. 2. No acute pulmonary process. 3. Mild aneurysmal dilatation of the ascending aorta, measuring 4.2 cm. Reviewed by: Michael Leal MD on 03/08/2024 4:01 PM PDT Approved by: Michael Leal MD on 03/08/2024 4:01 PM PDT Station ID: [id number]
[2024-03-08] MEDS: ONDANSETRON 4 MG/2 ML VIAL IVP STA (16:05)
[2024-03-08] MEDS: HYDROmorphone 0.5 MG/0.5 ML SYRINGE IVP STA ×2 (16:05→16:59)
[2024-03-08] MEDS: ACETAMINOPHEN 500 MG TABLET PO STA ×2 (16:05→17:27)
--- NOTE | 2024-03-08 16:34 | ED Physician Documentation ---
History of Present Illness - Stated complaint Stated Complaint: CHEST PX PD PAST MEDICAL HISTORY - Past Medical History Cardiovascular: None Respiratory: None Neuro: Headaches Endocrine/Autoimmune: None GI: Hiatal hernia, Chronic constipation : Benign prostate hypertrophy, Other HEENT: Chronic vision loss Psych: Depression, Anxiety Musculoskeletal: Osteoarthritis, Fatigue, Chronic back pain - Past Surgical History Past Surgical History: No - Present Medications Home Medications: Ambulatory Orders Medication Instructions Recorded Confirmed Cholecalciferol (Vitamin D3) 4,000 unit PO DAILY 04/15/19 03/08/24 [Vitamin D3] Enzalutamide [Xtandi] 160 mg PO DAILY 04/15/19 03/08/24 HYDROcod/ACETAM 5/325 [[place] 5/325] 1 ea PO BID 04/15/19 03/08/24 Senna [Senokot] 8.6 mg PO BID PRN 04/15/19 03/08/24 Sertraline HCl 125 mg PO DAILY 04/15/19 03/08/24 Ferrous Gluconate [Iron] 1 tab PO DAILY 04/12/20 03/08/24 Melatonin 5 - 10 mg PO QPM 10/26/21 03/08/24 Mirtazapine [Remeron] 15 mg PO QPM 10/26/21 03/08/24 ALPRAZolam [Alprazolam] 1 tab PO BID PRN 05/26/22 03/08/24 Albuterol Sulf [Ventolin Hfa 2 puffs INH Q4HR PRN 05/26/22 03/08/24 Inhaler] Meloxicam [Mobic] 1 tab PO BID 05/26/22 03/08/24 Ondansetron Odt [Zofran Odt] 4 mg TL Q6H PRN #10 tablet 03/08/24 oxyCODONE [Roxicodone] 5 mg PO Q4-6H PRN #15 tablet 03/08/24 polyethylene glycoL 3350(BULK) 17 gm PO DAILY #238 gm 03/08/24 [Miralax (Bulk)] - Allergies Allergies/Adverse Reactions: Allergies Allergy/AdvReac Type Severity Reaction Status Date / Time codeine Allergy Rash Verified 03/08/24 17:51 - Social History Does the pt smoke?: No Smoking Status: Former smoker Does the pt drink ETOH?: No Does the pt have substance abuse?: Yes - Immunizations Immunizations are current?: Yes - POLST Patient has POLST: No Results - Vitals Vitals: Vital Signs - 24 hr 03/08/24 03/08/24 11:47 18:18 Temperature 36.3 C L Heart Rate 84 64 Respiratory 22 13 Rate Blood Pressure 107/67 107/61 O2 Saturation 98 99 Oxygen O2 Source Room air - Labs Labs: Laboratory Tests 03/08/24 03/08/24 12:20 12:20 WBC 10.6 RBC 4.35 L Hgb 12.2 L Hct 37.7 L MCV 86.7 MCH 28.0 MCHC 32.4 RDW 16.5 H Plt Count 281 MPV 9.3 Neut # (Auto) 6.4 Lymph # (Auto) 2.6 [place] # (Auto) 1.1 H Eos # (Auto) 0.3 Baso # (Auto) 0.1 Absolute Nucleated RBC 0.00 Nucleated RBC % 0.0 Sodium 140 Potassium 3.4 L Chloride 107 Carbon Dioxide 25 Anion Gap 8.0 BUN 12 Creatinine 0.8 Estimated GFR (MDRD) 94 Glucose 108 H Calcium 9.8 Total Bilirubin 0.8 AST 22 ALT 9 L Alkaline Phosphatase 65 Troponin I High Sens 3.4 Total Protein 8.1 Albumin 4.5 Globulin 3.6 Albumin/Globulin Ratio 1.3 Lipase 460 H - Rads (name of study) CT chest angio Relevant Findings:: Final report received, EMP independent interpretation of test, Other (No pulmonary embolism, mildly aneurysmal dilation of the ascending aorta at 4.2 cm) PD Medical Decision Making - ED course ED course: 78-year-old male presents emergency department for chest pain. Labs are complete for further evaluation and he does appear to have leukocytosis No active signs of infection his lipase did come back quite elevated at 460 mild hypokalemia 3.4. Angio chest CT was complete for further evaluation as patient did have chest pain originally upon arrival to the emergency department as well as shortness of breath no acute pulmonary embolus visualized no acute pulmonary process mild aneurysmal dilation ascending aorta measuring 4.2 cm. Abdomen ultrasound was complete for further evaluation of patient's right upper quadrant tenderness positive Jean sign and patient appears to have intrinsic liver disease most likely cirrhosis, fatty liver disease, hydropic gallbladder without sonographic findings of acute cholecystitis heterogenous pancreas. I believe that patient is most likely experiencing pancreatitis. He was offered hospitalization here in the emergency department as we originally were having a hard time controlling his pain but his pain is now significantly improved and he would like to trial going home and managing his pain at home with pain medication and antinausea medication fasting. Return precautions given patient told to have his labs reevaluated and repeat next week for further evaluation he understands when to come back to the ER his is at bedside who says that she would also keep a close eye on him going home. I am prescribing a short course of short-acting opioid pain medication for this patient. I have reviewed the patients DAMAGE CUTTER and no concerning findings were noted. I have discussed that the opioids are for short term therapy only, and will not be refilled from the ED. Departure - Departure Disposition: Home, Self Care Clinical Impression: Pancreatitis, Elevated lipase Instructions: Pancreatitis, ED Pancreatitis Prescriptions: polyethylene glycoL 3350(BULK) [Miralax (Bulk)] 17 gm PO DAILY #238 gm oxyCODONE [Roxicodone] 5 mg PO Q4-6H PRN #15 tablet PRN Reason: Pain >8 Ondansetron Odt [Zofran Odt] 4 mg TL Q6H PRN #10 tablet PRN Reason: Nausea / Vomiting Comments: Thank you for trusting us with your care and thank you for your patience in the emergency department today. Your lipase is quite elevated, it is 460. We have completed an ultrasound and it appears that your gallbladder is distended. I am concerned that you possibly have acute pancreatitis with this right upper quadrant pain. We have given you pain medication here in the emergency department and sending you home with pain medication as well as antinausea medication. Please follow-up with your primary care provider or your palliative care provider to have your labs reevaluated specifically your lipase. We offered to hospitalize you for pain control but you would like to try going home and managing your symptoms at home. I recommend you fasting and drinking only clear liquids for the next 24 hours to help with your right upper quadrant pain and if you start to have any worsening pain or symptoms or any fevers or chills please come back to the emergency department immediately for further evaluation. I am prescribing a short course of narcotic pain medication for you. These are potentially dangerous and addictive medications that should be used carefully. These medications may constipate you. Take an wjqh-eux-rilivap stool softener (docusate) twice daily with plenty of water while taking these medications. If you go 24 hours without a bowel movement, take [id number] miralax, per package instructions. Do not drink or drive while taking these medications. If you received narcotic or sedating medications while in the emergency department, do not drive for 24 hours. Store this medication in a safe, secure place and out of reach of children. It is a violation of federal law to give or sell this medication to another person or to use in a manner other than prescribed. The ED will not refill narcotic prescriptions, including prescriptions lost or stolen. To dispose of unwanted medications: 1. [facility] at [address] in [place] has a medication drop box. They accept prescription medications (in pill form) Friday through Friday 9:00 a.m. to 5:00 p.m. 2. [facility] accepts prescription medications (in pill form only) for disposal year round. Call for more information. 3. Contact the [facility] for the next [facility] sponsored prescription drug collection event. , [phone], or [phone]; Note that many narcotic pain relievers also contain Tylenol/acetaminophen. Please ensure that your total dose of acetaminophen from all sources does not exceed 3 g (3000 mg) per day. Forms: PCP List Discharge Date/Time: 03/08/24 18:33
[2024-03-08] MEDS: iohexoL-300 100 ML VIAL IVP ONE (17:24)
[2024-03-08] MEDS: oxyCODONE/ACET 5/325 Prepack 4 PO STA (18:22)
[2024-03-08 18:24] VITALS: BP 107/61; O2SAT 99
--- NOTE | 2024-03-08 18:30 | Ultrasound Report ---
PROCEDURE: Abdomen Limited INDICATIONS: ELEVATED LFT'S; RUQ PAIN TECHNIQUE: Real-time focused scanning was performed of the abdomen, with image documentation. COMPARISONS: None. FINDINGS: Liver: Normal size liver with diffusely dense and hyperechoic parenchyma. Nodular liver margin. No d iscrete mass. Gallbladder: Distended gallbladder without wall thickening, stones, or sludge. No pericholecystic flu id or sonographic Jean sign. Biliary ducts: Intrahepatic bile ducts are non-dilated. Extrahepatic bile duct caliber measures 4 m m. Normal is 6-7 mm or less in diameter, or 10 mm or less post-cholecystectomy. Pancreas: Heterogeneously hypoechoic pancreatic parenchyma. No visible ductal dilatation. Right kidney: Normal in size and echotexture. Right kidney measures 12.3 cm long. No hydronephrosis or nephrolithiasis. No solid masses. No complex renal cystic lesions which require follow-up. Centra l anechoic parapelvic cyst measuring 3.0 cm. IVC: Intrahepatic inferior vena cava is patent. Miscellaneous: No free abdominal fluid. IMPRESSION: Hyperechoic hepatic parenchyma suggestive of intrinsic liver disease, probably cirrhosis given nodula r liver contour. Hepatic steatosis can also have this appearance. Hydropic gallbladder without sonographic findings of acute cholecystitis. Heterogeneous pancreas, nonspecific. Correlate with amylase and lipase levels. Preliminary results given by the franchise sales representative to the ordering provider immediately following the study . Reviewed by: Nae De La Fuente MD on 03/08/2024 6:29 PM PDT Approved by: Nae De La Fuente MD on 03/08/2024 6:29 PM PDT Station ID: [id number]
== END 2024-03-08 18:33 | disposition home or self-care (01) ==
LOC: ED 11:47
DX: K85.90 Acute pancreatitis without necrosis or infection, unspecified (principal); R74.8 Abnormal levels of other serum enzymes; Z79.899 Other long term (current) drug therapy; Z87.891 Personal history of nicotine dependence
CPT/HCPCS: 36415; 71275; 76705; 80053; 83690; 84484; 85025; 93005; 96374; 96376; 99284; A9270; J1170; Q9967

== ENCOUNTER 2024-03-11 08:00 | Outpatient (CLI) | payer MEDICARE, MEDICAID | END 2024-03-11 23:59 | disposition home or self-care (01) | LOC: PC 08:00 | PROVIDERS: ATTEND Nurse Practitioner Adult Health | DX: Z51.5 Encounter for palliative care (principal); K85.90 Acute pancreatitis without necrosis or infection, unspecified; M62.81 Muscle weakness (generalized); G31.84 Mild cognitive impairment of uncertain or unknown etiology; C61 Malignant neoplasm of prostate; C79.51 Secondary malignant neoplasm of bone; Z79.899 Other long term (current) drug therapy; Z79.891 Long term (current) use of opiate analgesic; Z79.818 Long term (current) use of other agents affecting estrogen receptors and estrogen levels; F10.21 Alcohol dependence, in remission; F15.21 Other stimulant dependence, in remission; F12.90 Cannabis use, unspecified, uncomplicated; Z59.89 Other problems related to housing and economic circumstances; Z60.8 Other problems related to social environment; Z71.89 Other specified counseling | CPT/HCPCS: 99349 ==